=== PATIENT | female | born 1995 | race Hispanic/Latino ===

== ENCOUNTER 2021-10-19 18:04 | Emergency (ER) | payer SELFPAY ==
--- OUTSIDE RECORDS SUMMARY | 2021-10-19 18:05 | XMS REPORT | Continuity of Care Document ---
:1995 Author Organization [facility] t Address [facility] [place] [address] Care Team Providers Name Role Phone Unavailable Unavailable Unavailable Problems This patient has no known problems. Allergies, Adverse Reactions, Alerts This patient has no known allergies or adverse reactions. Medications This patient has no known medications. Procedures This patient has no known procedures. Results This patient has no known results.
--- NOTE | 2021-10-19 20:52 | EDPHYS ---
Physician Documentation [facility] Name: Akanksha Cortez Age: 26 yrs Sex: Female : 1995 Arrival Date: 10/19/2021 Time: 18:07 Bed Waiting Private MD: ED Physician Michael Leggett HPI: 10/19 20:50 This 26 yrs old Female presents to ER via Ambulatory with complaints of Cough, kb Sore Throat, Shortness Of Breath. 20:50 The patient or guardian reports cough, that is intermittent, described as mild, kb difficulty breathing, flu symptoms, low-grade fever, myalgias. Onset: The symptoms/episode began/occurred 3 day(s) ago. Severity of symptoms: At their worst the symptoms were mild, moderate, in the emergency department the symptoms are unchanged. Modifying factors: The symptoms are alleviated by nothing, the symptoms are aggravated by nothing. Associated signs and symptoms: Pertinent positives: fever, sore throat, Pertinent negatives: chest pain, diarrhea, ear ache, nausea, rhinorrhea, vomiting. The patient has not experienced similar symptoms in the past. The patient has not recently seen a physician. Pt reports fever, sore throat and shortness of breath for 3 days. 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 - Social history:: Smoking status: unknown. ROS: 20:50 Abdomen/GI: Negative for abdominal pain, nausea, vomiting, diarrhea, and constipation. kb 20:50 Constitutional: Positive for fever. 20:50 ENT: Positive for sore throat. 20:50 Respiratory: Positive for cough, shortness of breath. 20:50 All other systems are negative. Exam: 20:50 Constitutional: This is a well developed, well nourished patient who is awake, alert, kb and in no acute distress. Head/Face: Normocephalic, atraumatic. ENT: Moist Mucous membranes Cardiovascular: Regular rate and rhythm with a normal S1 and S2. No gallops, murmurs, or rubs. No pulse deficits. Respiratory: Respirations even and unlabored. No increased work of breathing. Talking in full sentences Skin: Warm, dry with normal turgor. Normal color. MS/ Extremity: Pulses equal, no cyanosis. Neurovascular intact. Full, normal range of motion. Neuro: Awake and alert, GCS 15, oriented to person, place, time, and situation. Moves all extremities. Normal gait. Psych: Awake, alert, with orientation to person, place and time. Behavior, mood, and affect are within normal limits. Vital Signs: 19:26 BP 137 / 73; Pulse 107; Temp 98.6; Pulse Ox 99% on R/A; sm5 21:00 BP 131 / 70; Pulse 97; Resp 19; Pulse Ox 100% on R/A; sm5 MDM: 19:33 Patient medically screened. kb 20:44 Data reviewed: vital signs, nurses notes. Data interpreted: Pulse oximetry: on room air kb is 99 %. Interpretation: normal. Counseling: I had a detailed discussion with the patient and/or guardian regarding: the historical points, exam findings, and any diagnostic results supporting the discharge/admit diagnosis, lab results, the need for outpatient follow up, a family practitioner, to return to the emergency department if symptoms worsen or persist or if there are any questions or concerns that arise at home. 10/19 19:33 Order name: Flu; Complete Time: 20:44 kb 10/19 19:33 Order name: Strep; Complete Time: 20:13 kb 10/19 19:33 Order name: COVID-19 (Coronavirus) Document "Date of Onset" if Symptomatic 10/19 20:03 Order name: Throat Culture EDMS Administered Medications: No medications were administered Disposition: 10/20 00:36 Co-signature as Attending Physician, Michael Leggett MD. pkl Disposition Summary: 10/19/21 20:52 Discharge Ordered Location: Home kb Condition: Stable kb Diagnosis - Acute upper respiratory infection, unspecified kb Followup: kb - With: Private Physician - When: 2 - 3 days - Reason: Recheck today's complaints, Continuance of care, Re-evaluation by your physician Followup: kb - With: Emergency Department - When: As needed - Reason: Worsening of condition Discharge Instructions: - Discharge Summary Sheet kb - Upper Respiratory Infection, Adult, [id number] kb - Viral Respiratory Infection, [id number] kb Forms: - Medication Reconciliation Form kb - Thank You Letter kb - Antibiotic Education kb - Prescription Opioid Use kb Signatures: Dispatcher [employer] EDBeata Ham, ELECTRONIC ENGINEERING DRAFTSPERSON-C ELECTRONIC ENGINEERING DRAFTSPERSON-Michael Woody MD MD pkl Mazur, Sarah, RN RN sm5
--- NOTE | 2021-10-19 20:52 | ER ---
Nurse's Notes [facility] Name: Akanksha Cortez Age: 26 yrs Sex: Female : 1995 Arrival Date: 10/19/2021 Time: 18:07 Bed Waiting Private MD: Diagnosis: Acute upper respiratory infection, unspecified Presentation: 10/19 19:26 Chief complaint: Patient states: fever, sore throat, difficulty breathing for 3 days. sm5 Coronavirus screen: difficulty breathing, fever, sore throat. Ebola Screen: No symptoms or risks identified at this time. Initial Sepsis Screen:. Onset of symptoms was September 2021. 19:26 Method Of Arrival: Ambulatory [facility] 19:37 Initial Sepsis Screen: Does the patient meet any 2 criteria? HR > 90 bpm. Does the 5 patient have a suspected source of infection? No. Patient's initial sepsis screen is negative. 19:37 Acuity: KALYAN 3 sm5 21:01 Risk Assessment: Do you want to hurt yourself or someone else? Patient reports no sm5 desire to harm self or others. Triage Assessment: 19:37 General: Appears in no apparent distress. Behavior is cooperative. Pain: Complains of sm5 pain in throat. EENT: Reports sore throat. Respiratory: Airway is patent Trachea midline Respiratory effort is even, unlabored. 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 - Social history:: Smoking status: unknown. Screenin:01 Abuse screen: Denies threats or abuse. Denies injuries from another. Nutritional sm5 screening: No deficits noted. Tuberculosis screening: No symptoms or risk factors identified. Fall Risk None identified. Assessment: 21:00 Reassessment: see triage assessment. Respiratory: No deficits noted. Reports shortness sm5 of breath cough that is Airway is patent Trachea midline Respiratory effort is even, unlabored, Breath sounds are clear bilaterally. 21:01 EENT: Throat is clear. sm5 Vital Signs: 19:26 BP 137 / 73; Pulse 107; Temp 98.6; Pulse Ox 99% on R/A; sm5 21:00 BP 131 / 70; Pulse 97; Resp 19; Pulse Ox 100% on R/A; sm5 ED Course: 18:07 Patient arrived in ED. as 19:33 Beata Gregory FNP-C is [facility]. kb 19:33 Michael Leggett MD is Attending Physician. kb 19:37 Triage completed. sm5 19:47 Flu Sent. sm5 19:47 Strep Sent. sm5 19:47 COVID-19 (Coronavirus) Document "Date of Onset" if Symptomatic Sent. sm5 21:01 No provider procedures requiring assistance completed. Patient did not have IV access sm5 during this emergency room visit. 21:01 Arm band placed on right wrist. sm5 21:01 Patient has correct armband on for positive identification. sm5 Administered Medications: No medications were administered Outcome: 20:52 Discharge ordered by . kb 21:02 Discharged to home ambulatory. sm5 21:02 Condition: good 21:02 Discharge instructions given to patient, Instructed on discharge instructions, follow up and referral plans. Demonstrated understanding of instructions, follow-up care. 21:02 Patient left the ED. sm5 Signatures: Beata Gregory FNP-C FNP-Ckb Martinez, Amelia as Mazur, Sarah, RN RN sm5 Corrections: (The following items were deleted from the chart) 19:29 19:26 Pulse 107bpm; Pulse Ox 99% RA; Temp 98.6F; sm5 sm5
[2021-10-19 21:17] VITALS: TEMP 98.6
[2021-10-19 21:19] VITALS: BP 131/70; O2SAT 100
== END 2021-10-19 21:02 | disposition home or self-care (01) ==
LOC: ER 18:04
DX: U07.1 COVID-19 (principal); J98.8 Other specified respiratory disorders
CPT/HCPCS: 87070; 87081; 87804; 99283; U0002

== ENCOUNTER 2023-05-21 17:42 | Emergency (ER) | payer SELFPAY ==
--- OUTSIDE RECORDS SUMMARY | 2023-05-21 17:52 | XMS REPORT | Continuity of Care Document ---
:1995 Author Organization [facility] t Address [address] [facility] [place] [address] Care Team Providers Name Role Phone PCP, PATIENT DOES NOT HAVE A Primary Care Physician UnavailVALENCIA Colon Attending Clinician Unavailable Doctor Unassigned, [place] Attending Clinician Unavailable NIKITA CHO Attending Clinician Unavailable ANDREA DAIGLE Attending Clinician Unavailable Nani Jiang DO Attending Clinician Andrea Daigle MD Attending Clinician [phone] NANI JIANG Admitting Clinician Unavailable Payers Payer Name Policy Type Policy Number Effective Date Expiration Date S carmita MEDICAID ALIEN PENDING 2022 PENDING 00:00:00 Problems Condition Condition Condition Status Onset Resolution Last Treating Co mments Source Name Details Category Date Date Treatment Clinician Date Well woman Well woman Disease Active U nivers exam exam 6-04 ity of 00:00: [address] H/O H/O Disease Active Univers allergy to allergy to 4-23 [place] [address] [place] [address] Obesity Obesity Disease Active Univers (BMI (BMI 4-20 ity of 30-39.9) 30-39.9) 00:00: [address] Allergies, Adverse Reactions, Alerts Allergy Allergy Status Severity Reaction(s) Onset Inactive Treating Comm ents Source Name Type Date Date Clinician Penicill Propensi Active 2016-10 ins ty to 1-15 adverse 00:00: reaction 00 to drug PENICILL DRUG Active Hives Univers IN G INGREDI 3-15 ity of 00:00: [place] 00 [facility] Penicill Propensi Active Hives Univer s in G ty to 3-15 ity of adverse 00:00: [place] reaction 00 [facility] Social History Social Habit Start Date Stop Date Quantity Comments Source Gender identity [facility]it y [facility] [place] Sexual orientation Univer sity of [facility] [place] Exposure to 2022-07-13 2022-07-23 Not sure [facility] SARS-CoV-2 (event) 00:00:00 03:54:00 [facility] [place] Alcohol intake 2022-07-23 2022-07-23 0 /d University 00:00:00 00:00:00 [facility] [place] History of Social 2019-05-01 2019-05-01 Univers ity of function 00:00:00 00:00:00 [facility] [place] Tobacco use and 2018-01-08 2018-01-08 Smokeless Universit y of exposure 00:00:00 00:00:00 tobacco non-user [facility] Sex Assigned At [birth year] Universit y of 00:00:00 00:00:00 [facility] [place] Smoking Status Start Date Stop Date Source Never smoked tobacco [facility] Medications Ordered Filled Start Stop Current Ordering Indication Dosage Frequency Signature Comments Components Source Medication Medication Date Date Medication? Clinician (SIG) Name Name TAKE 2021-10 No TABLET BY 1-30 MOUTH EVERY 00:00: 8 HOURS 00 NEEDED FOR NAUSEA AND VOMITING . iopamidol 2021-10- No [id number] 75mL 75 mL, U nivers (ISOVUE 07-23 Intravenou ity o f 370-500 mL) 12:00: 11:03 s, ONCE, 1 [place] injection 00 :00 dose, On Medica l 75 mL [place] 07/23/22 at 0700, Routine pantoprazol 2021-10- No 80mg 80 mg, IV Univers e 07-23 Push, ity of (PROTONIX) 10:15: 10:17 ONCE, 1 True as 80 mg in 00 :00 dose, On Medical NaCl 0.9% [place] (NS) 20 mL 07/23/22 at syringe 0515, Administer over 2 Minutes, 20 mL ondansetron 2021-10- No 4mg 4 mg, Slow Univers (ZOFRAN 0-02 10-02 IV Push, ity of (PF)) 10:15: 09:16 ONCE, 1 [place] injection 4 00 :00 dose, On Medi darcy mg [place] 07/23/22 at 0515, Routine maalox:diph 2021-10- No 15mL 15 mL, Uni vers enhydrAMINE 0-02 10-02 Oral, ity of :lidocaine 10:00: 09:15 ONCE, 1 True as 2 % viscous 00 :00 dose, On Medi darcy 1:1:1 [place] (FIRST-MOUT 07/23/22 at [facility]) 0500, oral Routine suspension 15 mL morpHINE (4 2021-10 Yes 4mg 4 mg, Slow Univers mg/mL) 0-02 IV Push, ity of injection 4 09:03: Q4HPRN, True as mg 00 Starting Medical on [place] 07/23/22 at 0403, Until Discontinu ed, Routine, Pain (scale 7-10) ondansetron 2021-10 Yes [id number] 4mg Take 1 Univers (ZOFRAN) 4 0-02 tablet by ity of mg tablet 00:00: mouth [place] 00 every 8 Medical (eight) Branch hours as needed for Nausea and Vomiting (N/V). ondansetron 2021-10 Yes [id number] 4mg Take 1 Univers (ZOFRAN) 4 0-02 tablet by ity of mg tablet 00:00: mouth [place] 00 every 8 Medical (eight) Branch hours as needed for Nausea and Vomiting (N/V). acetaminoph 2021-10- No [id number] 1{tbl} Take 1 U nivers en-codeine 0-02 10-10 tablet by ity of (TYLENOL-CO 00:00: 04:59 [place] DEINE #3) 00 :00 every 6 Medical 300-30 mg (six) Branch tablet hours as needed for Pain (scale 4-6) for up to 7 days. Indication s: acute pain Dose 2019-10 No Unknown 2-03 00:00: 00 Dose 2019- No Unknown 6-11 00:00: 00 sulfamethox 2018-0 No 1mg azole 800 6-12 mg-trimetho 00:00: prim 160 mg 00 tablet phenazopyri No 1mg dine 200 mg 6-12 tablet 00:00: 00 cyclobenzap No 1mg rine 5 mg 5-16 tablet 00:00: 00 Bactrim DS No 1mg 800 mg-160 3-22 mg tablet 00:00: 00 norethindro Yes [id number] 1{tbl} Take 1 Univers ne 0.35 mg 6-04 tablet by ity of tablet 00:00: mouth [place] 00 daily. Medical Branch norethindro Yes [id number] 1{tbl} Take 1 Univers ne 0.35 mg 6-04 tablet by ity of tablet 00:00: mouth [place] 00 daily. Medical Branch norethindro Yes [id number] 1{tbl} Take 1 Univers ne 0.35 mg 6-04 tablet by ity of tablet 00:00: mouth [place] 00 daily. Medical Branch ASCORBATE Yes Take by Unive rs CALCIUM 4-25 mouth. ity of (VITAMIN C 13:58: [place] ORAL) 52 Medical Branch ASCORBATE Yes Take by Unive rs CALCIUM 4-25 mouth. ity of (VITAMIN C 13:58: [place] ORAL) 52 Medical Branch ASCORBATE Yes Take by Unive rs CALCIUM 4-25 mouth. ity of (VITAMIN C 13:58: [place] ORAL) 52 Medical Branch HYDROcodone Yes 1{tbl} Take 1-2 Univers -acetaminop 4-25 tablets by it y of hen 5-325 00:00: mouth [place] mg tablet 00 every 6 Medical (six) Branch hours as needed for Pain (scale 4-6) (Pain scale above 4). Yes 1{tbl} Take 1 Unive rs vitamin 4-25 tablet by ity of w/FA tablet 00:00: mouth [place] 00 daily. Medical Branch docusate Yes 240mg Take 1 Univer s calcium 240 4-25 capsule by it y of mg capsule 00:00: mouth [place] 00 daily as Medical needed for Branch Constipati on. ferrous Yes 325mg Take 1 Univers sulfate 325 4-25 tablet by ity of mg (65 mg 00:00: mouth 2 [place] iron) 00 (two) Medical tablet times Branch daily. ibuprofen 2018-0 Yes 600mg Take 1 Unive rs 600 mg 4-25 tablet by ity of tablet 00:00: mouth [place] 00 every 6 Medical (six) Branch hours as needed for Pain (scale 1-3) or Pain (scale 4-6) (Pain). Take with food or milk. HYDROcodone 2018-0 Yes 1{tbl} Take 1-2 Univers -acetaminop 4-25 tablets by it y of hen 5-325 00:00: mouth [place] mg tablet 00 every 6 Medical (six) Branch hours as needed for Pain (scale 4-6) (Pain scale above 4). 2018-0 Yes 1{tbl} Take 1 Unive rs vitamin 4-25 tablet by ity of w/FA tablet 00:00: mouth [place] 00 daily. Medical Branch docusate 2018-0 Yes 240mg Take 1 Univer s calcium 240 4-25 capsule by it y of mg capsule 00:00: mouth [place] 00 daily as Medical needed for Branch Constipati on. ferrous 2018-0 Yes 325mg Take 1 Univers sulfate 325 4-25 tablet by ity of mg (65 mg 00:00: mouth 2 [place] iron) 00 (two) Medical tablet times Branch daily. ibuprofen 2018-0 Yes 600mg Take 1 Unive rs 600 mg 4-25 tablet by ity of tablet 00:00: mouth [place] 00 every 6 Medical (six) Branch hours as needed for Pain (scale 1-3) or Pain (scale 4-6) (Pain). Take with food or milk. HYDROcodone 2018-0 Yes 1{tbl} Take 1-2 Univers -acetaminop 4-25 tablets by it y of hen 5-325 00:00: mouth [place] mg tablet 00 every 6 Medical (six) Branch hours as needed for Pain (scale 4-6) (Pain scale above 4). 2018-0 Yes 1{tbl} Take 1 Unive rs vitamin 4-25 tablet by ity of w/FA tablet 00:00: mouth [place] 00 daily. Medical Branch docusate 2018-0 Yes 240mg Take 1 Univer s calcium 240 4-25 capsule by it y of mg capsule 00:00: mouth once [place] 00 daily as Medical needed for Branch Constipati on. ferrous 2018-0 Yes 325mg Take 1 Univers sulfate 325 4-25 tablet by ity of mg (65 mg 00:00: mouth 2 [place] iron) 00 (two) Medical tablet times Branch daily. ibuprofen 2018- Yes 600mg Take 1 Unive rs 600 mg 4-25 tablet by ity of tablet 00:00: mouth [place] 00 every 6 Medical (six) Branch hours as needed for Pain (scale 1-3) or Pain (scale 4-6) (Pain). Take with food or milk. Keflex 500 No 1mg mg capsule 11-21 00:00: 00 Immunizations Ordered Filled Immunization Date Status Comments [facility] e Immunization Name Name HPV9 2018-09-30 Completed University of 00:00:00 [facility] [place] HPV9 2018-09-30 Completed University of 00:00: [facility] [place] HPV9 2018-09-30 Completed University of 00:00:00 [facility] [place] HPV9 2018-03-25 Completed University of 00:00:00 [facility] [place] HPV9 2018-03-25 Completed University of 00:00:00 [facility] [place] HPV9 2018-03-25 Completed University of 00:00:00 [facility] [place] HPV9 2018-02-13 Completed University of 00:00:00 [facility] [place] HPV9 2018-02-13 Completed University of 00:00:00 [facility] [place] HPV9 2018-02-13 Completed University of 00:00:00 [facility] [place] PPD (TB) 2018-01-08 Completed University of 00:00:00 [facility] [place] PPD (TB) 2018-01-08 Completed University of 00:00:00 [facility] [place] PPD (TB) 2018-01-08 Completed University of 00:00:00 [facility] [place] Influenza Virus 2017-10-31 Completed Universit y of Vaccine 00:00:00 [facility] [place] Influenza Virus 2017-10-31 Completed Universit y of Vaccine 00:00:00 [facility] [place] Influenza Virus 2017-10-31 Completed Universit y of Vaccine 00:00:00 [facility] [place] TDAP (ADACEL) 2017-10-03 Completed University of VACCINE 00:00:00 [facility] [place] TDAP (ADACEL) 2017-10-03 Completed University of VACCINE 00:00:00 [facility] [place] TDAP (ADACEL) 2017-10-03 Completed University of VACCINE 00:00:00 [facility] [place] Influenza, 2017-09-05 Completed seasonal, inj 00:00:00 Tdap 2017-09-05 Completed 00:00:00 Influenza Virus 2017-01-03 Completed Universit y of Vaccine Quad ID 00:00:00 [place] [facility] 18-64 YRS Branch Influenza Virus 2017-01-03 Completed Universit y of Vaccine Quad ID 00:00:00 [place] [facility] ical 18-64 YRS Branch Influenza Virus 2017-01-03 Completed Universit y of Vaccine Quad ID 00:00:00 [facility] ical 18-64 YRS Branch Vital Signs Vital Name Observation Time Observation Value Comments Source Systolic blood 2022-07-23 12:03:00 122 mm[Hg] Univer sity of pressure [facility] [place] Diastolic blood 2022-07-23 12:03:00 71 mm[Hg] Unive rsity of pressure [facility] [place] Heart rate 2022-07-23 12:03:00 57 /min [facility] Respiratory rate 2022-07-23 12:03:00 16 /min [facility] Oxygen saturation in 2022-07-23 12:00:00 99 /min [facility] Arterial blood by [facility] Pulse oximetry Branch Body temperature 2022-07-23 08:56:00 36.11 Alie [facility] height 2022-07-23 08:56:00 162.6 cm [facility] Body weight 2022-07-23 08:56:00 88.451 kg [facility] BMI 2022-07-23 08:56:00 33.47 kg/m2 [facility] Heart Rate 2022-09-22 13:37:00 75.00 /min Respiratory Rate 2022-09-22 13:37:00 18.00 /min BP Systolic 2022-09-22 13:37:00 105 mm[Hg] BP Diastolic 2022-09-22 13:37:00 70 mm[Hg] Weight Measured 2022-09-22 13:37:00 196.40 pounds Height Measured 2022-09-22 13:37:00 65.00 inches Body Temperature 2022-09-22 13:37:00 97.70 degrees BP Systolic 2020-09-23 15:44:00 99 mm[Hg] BP Diastolic 2020-09-23 15:44:00 62 mm[Hg] Weight Measured 2020-09-23 15:44:00 191.60 pounds Height Measured 2020-09-23 15:44:00 65.00 inches Body Temperature 2020-09-23 15:44:00 99.80 degrees Heart Rate 2020-09-23 15:44:00 76.00 /min Respiratory Rate 2020-09-23 15:44:00 18.00 /min BP Systolic 2020-05-28 14:46:00 120 mm[Hg] BP Diastolic 2020-05-28 14:46:00 70 mm[Hg] Weight Measured 2020-05-28 14:46:00 196.00 pounds Height Measured 2020-05-28 14:46:00 65.00 inches Body Temperature 2020-05-28 14:46:00 98.30 degrees Heart Rate 2020-05-28 14:46:00 73.00 /min Respiratory Rate 2020-05-28 14:46:00 16.00 /min BP Systolic 2020-04-01 09:26:00 115 mm[Hg] BP Diastolic 2020-04-01 09:26:00 69 mm[Hg] Weight Measured 2020-04-01 09:26:00 198.40 pounds Height Measured 2020-04-01 09:26:00 65.00 inches Body Temperature 2020-04-01 09:26:00 98.80 degrees Heart Rate 2020-04-01 09:26:00 79.00 /min Respiratory Rate 2020-04-01 09:26:00 16.00 /min BP Systolic 2020-04-01 09:21:00 115 mm[Hg] BP Diastolic 2020-04-01 09:21:00 69 mm[Hg] Weight Measured 2020-04-01 09:21:00 198.40 pounds Height Measured 2020-04-01 09:21:00 65.00 inches Body Temperature 2020-04-01 09:21:00 98.80 degrees Heart Rate 2020-04-01 09:21:00 79.00 /min Respiratory Rate 2020-04-01 09:21:00 16.00 /min BP Systolic 2020-04-01 09:09:00 115 mm[Hg] BP Diastolic 2020-04-01 09:09:00 69 mm[Hg] Weight Measured 2020-04-01 09:09:00 198.40 pounds Height Measured 2020-04-01 09:09:00 65.00 inches Body Temperature 2020-04-01 09:09:00 98.80 degrees Heart Rate 2020-04-01 09:09:00 79.00 /min Respiratory Rate 2020-04-01 09:09:00 16.00 /min BP Systolic 2020-04-01 09:07:00 115 mm[Hg] BP Diastolic 2020-04-01 09:07:00 69 mm[Hg] Weight Measured 2020-04-01 09:07:00 198.40 pounds Height Measured 2020-04-01 09:07:00 65.00 inches Body Temperature 2020-04-01 09:07:00 98.80 degrees Heart Rate 2020-04-01 09:07:00 79.00 /min Respiratory Rate 2020-04-01 09:07:00 16.00 /min BP Systolic 2020-03-31 10:29:00 106 mm[Hg] BP Diastolic 2020-03-31 10:29:00 68 mm[Hg] Weight Measured 2020-03-31 10:29:00 199.60 pounds Height Measured 2020-03-31 10:29:00 65.00 inches Body Temperature 2020-03-31 10:29:00 98.80 degrees Heart Rate 2020-03-31 10:29:00 67.00 /min Respiratory Rate 2020-03-31 10:29:00 18.00 /min BP Systolic 2019-09-22 09:52:00 113 mm[Hg] BP Diastolic 2019-09-22 09:52:00 75 mm[Hg] Weight Measured 2019-09-22 09:52:00 194.00 pounds Height Measured 2019-09-22 09:52:00 65.00 inches Body Temperature 2019-09-22 09:52:00 98.50 degrees Heart Rate 2019-09-22 09:52:00 68.00 /min Respiratory Rate 2019-09-22 09:52:00 BP Systolic 2019-09-17 14:48:00 130 mm[Hg] BP Diastolic 2019-09-17 14:48:00 74 mm[Hg] Weight Measured 2019-09-17 14:48:00 196.40 pounds Height Measured 2019-09-17 14:48:00 65.00 inches Body Temperature 2019-09-17 14:48:00 98.60 degrees Heart Rate 2019-09-17 14:48:00 83.00 /min Respiratory Rate 2019-09-17 14:48:00 18.00 /min Procedures Procedure Date / Time Performed Performing Clinician Sourc e REFERRAL- 2023-05-15 05:01:00 Doctor Unassigned, No Univer [facility] REQUEST/RESPONSE Name Medical [place] US ABDOMEN LIMITED 2022-07-23 12:22:00 Nani Jiang [facility] y [facility] CT ABDOMEN PELVIS W 2022-07-23 11:05:42 Nani Jiang [facility] CONTRAST [facility] POCT TEST 2022-07-23 10:35:00 Nani Jiang [facility] URINALYSIS 2022-07-23 10:25:00 Singer [facility] LIPASE 2022-07-23 09:17:00 Singer [facility] COMP. METABOLIC PANEL 2022-07-23 09:17:00 Nani Jiang [facility] ([id number]) [facility] CBC WITH DIFF 2022-07-23 09:17:00 Singer [facility] NOTICE OF PRIVACY 2022-07-23 08:50:10 Doctor Unassigned, No Univ [facility] [place] PRACTICES Name [facility] CONSENT/REFUSAL FOR 2022-07-23 08:49:40 [facility] Branch TREATMENT Plan of Care Planned Activity Planned Date Details Comments Source Goal Plan of Care Note [code = 66082-7] Goal Plan of Care Note [code = 05291-6] Goal Plan of Care Note [code = 20498-2] Goal Plan of Care Note [code = 81888-1] Goal Plan of Care Note [code = 79727-6] Goal Plan of Care Note [code = 06887-5] Goal Plan of Care Note [code = 49660-9] Goal Plan of Care Note [code = 80161-2] Goal Plan of Care Note [code = 76635-6] Goal Plan of Care Note [code = 06142-0] Goal Plan of Care Note [code = 35521-2] Goal Plan of Care Note [code = 74202-1] Goal Plan of Care Note [code = 04225-1] Goal Plan of Care Note [code = 41343-8] Goal Plan of Care Note [code = 71797-2] Goal Plan of Care Note [code = 63614-0] Goal Plan of Care Note [code = 72384-3] Goal Plan of Care Note [code = 32741-0] Goal Plan of Care Note [code = 69293-9] Goal Plan of Care Note [code = 39607-5] Goal Plan of Care Note [code = 61295-0] Goal Plan of Care Note [code = 40579-8] Goal Plan of Care Note [code = 82038-8] Goal Plan of Care Note [code = 38289-6] Goal Plan of Care Note [code = 27305-4] Goal Plan of Care Note [code = 39779-9] Goal Plan of Care Note [code = 56703-4] Goal Plan of Care Note [code = 65990-6] Goal Plan of Care Note [code = 43730-4] Goal Plan of Care Note [code = 52784-6] Goal Plan of Care Note [code = 34813-9] Goal Plan of Care Note [code = 13969-2] Goal Plan of Care Note [code = 60057-3] Encounters Start End Encounter Admission Attending Care Care Encounter Source Date/Time Date/Time Type Type Clinicians Facility Department ID 2023-05-15 2023-05-15 Outpatient SFA SFA [id number] 023 Nickolas 09:24:48 09:24:48 0725 [facility] 2023-05-15 2023-05-15 Orders Doctor BRAGG [id number] Univers 00:00:00 00:00:00 Only Unassigned, IVANA 350.1.13.10 ity of [place] [facility] 4.2.7.2.686 True as [id number] [facility] 009 Branch 2023-02-05 2023-02-05 Outpatient SFA SFA [id number] [place] 10:37:27 10:37:27 0417 [facility] 2023-01-29 2023-01-29 Outpatient SFA SFA [id number] Nickolas 09:29:15 09:29:15 0410 [facility] 2023-01-23 2023-01-23 Outpatient SFA SFA [id number] Nickolas 16:29:57 16:29:57 0404 [facility] 2023-01-22 2023-01-22 Outpatient SFA [facility] [id number] [id number] Nickolas 15:44:46 15:44:46 0403 [facility] 2023-01-17 2023-01-17 Outpatient SFA [facility] [id number] Nickolas 13:42:59 13:42:59 0329 [facility] [place] 2022-10-03 2022-10-03 Outpatient SFA [facility] [id number] Nickolas 14:30:05 14:30:05 1213 [facility] [place] 2022-09-22 2022-09-22 Outpatient SFA [facility] [id number] Nickolas 13:31:55 13:31:55 1202 F [place] 2022-09-22 2022-09-22 Outpatient [id number] 00:00:00 00:00:00 Visit [id number] 2022-07-31 2022-07-31 Outpatient Lb CHO [facility] [id number] Univers 13:45:00 13:45:[address] [facility] 2022-07-23 2022-07-23 Emergency X AUFDERHEIDE [facility] ERT [id number] Univers 04:03:00 08:19:00 , ANDREA swenson [facility] 2022-07-23 2022-07-23 Emergency Nani Jiang [facility] [id number]. [id number] Univers 04:03:00 08:19:00 Andrea Daigle 350.1 .13.10 ity of [place] 4.2.7.2.686 [facility] [id number] [facility] 084 Branch 2022-07-23 2022-07-23 Orders Doctor MAHSA [id number] Univers 00:00:00 00:00:00 Only Unassigned, IVANA 350.1.13.10 ity of [place] [facility] 4.2.7.2.686 [facility] [id number] [facility] 009 Branch Results Test Description Test Time Test Comments Results Result Comments Source VITAMIN D, 25 [place] 2023-05-16 06:31:11 Test Item Value Reference Range Interpretation Comme nts VITAMIN D, 25 [place] (test 10 NG/ML SEE BELOW L E FFECTIVE 10/30/2022, PLEASE NOTE code = 4958) NEW METHODOLOGY IS ELECTROCHEMILUM INESCENCE BINDING ASSAY. NOTE: 25-HYDROX YVITAMIN D ASSAY INCLUDES 25-HYDROXYVITAM IN D2 AND D3. INTERPRETIVE RA NGES PEDIATRIC (<17 YEARS) . . . . . . . . . . . NG/ML 20-100ADULT: IN SUFFICIENT . . . . . . . . . . . . . . N G/ML <20 SUBOPTIMAL . . . . . . . . . . . . . . . NG/ML 20-29 OPTIMAL . . . . . . . . . . . . . . . . . NG/ML 30-100 UNLESS OTHERWISE INDICATED, ALL TESTING PERFORMED AT [facility] [employer] [address] [place] [address] PRESIDENT + PUBLISHER: SABAS ALVAREZ M.D. [place] NUMBER [id number] [facility] [place]. [id number] TSH, THIRD [id number] 06:19:25 Test Item Value Reference Range Interpretation Comments TSH, THIRD GENERATION (test code 1.350 UIU/ML 0.400-4.100 = 2821) LIPID [id number] 04:55:46 Test Item Value Reference Range Interpretation Comments CHOLESTEROL (test 151 MG/DL <200 code = 2210) TRIGLYCERIDES (test 129 MG/DL <150 code = 2232) HDL CHOLESTEROL (test 29 MG/DL >39 L code = 2220) CALC LDL CHOL (test 99 MG/DL <100 NOTE: C ALCULATED LDL code = 2237) IS BASED ON ARIE-GONZALES METHOD WHICHINCLUDES ADJUSTABLE TRIGLYCERIDE:VL DL CHOLESTEROL RAT IO.THIS FACTOR VARIES B Y MEASURED TRIGLY CERIDE AND NON-HDLCHOL ESTEROL CONCENTRATIONS WITH INCREASED CALCU LATED LDL SEENIN HIGH ER TRIGLYCERIDE OR LOWER NON-HDL SPECIME NS. FOR MOREINFORMATION , SEE CLIENT ANNOUNCE MENT AT [email or web address] RATIO LDL/HDL 3.41 RATIO <3.22 H (test code = 2238) COMPREHENSIVE METABOLIC [id number] 04:55:46 Test Item Value Reference Range Interpretation Comments GLUCOSE (test code = 93 MG/DL 70-99 2216) BUN (test code = 12 MG/DL 6-20 2207) CREATININE (test 0.69 MG/DL 0.60-1.30 code = 2213) eGFR (2020 CKD-EPI) 120 >60 (test code = 24920) ML/MIN/1.73 CALC BUN/CREAT (test 17 RATIO 6-28 code = 2234) SODIUM (test code = 141 MEQ/L 462-880 4560) POTASSIUM (test code 4.4 MEQ/L 3.5-5.4 = 2227) CHLORIDE (test code 106 MEQ/L 95-107 = 2214) CARBON DIOXIDE (test 26 MEQ/L 19-31 code = 2205) CALCIUM (test code = 9.4 MG/DL 8.5-10.5 2208) PROTEIN, TOTAL (test 7.6 G/DL 6.1-8.3 code = 2228) ALBUMIN (test code = 4.5 G/DL 3.5-5.2 2200) CALC GLOBULIN (test 3.1 G/DL 1.9-3.7 code = 2239) CALC A/G RATIO (test 1.5 RATIO 1.0-2.6 code = 2233) BILIRUBIN, TOTAL 0.4 MG/DL See_Comment [Automated message] (test code = 2206) The syste m which generated this result transmit rachel reference range : <=1.2. The refe rence range was not u sed to interpret th is result as normal/abnormal . ALKALINE PHOSPHATASE 103 U/L 40-112 (test code = 2203) AST (test code = 21 U/L 9-40 2217) ALT (test code = 22 U/L 5-40 2218) HEMOGLOBIN [id number] 04:04:58 Test Item Value Reference Range Interpretation Comments HEMOGLOBIN A1c (test 5.7 % 4.2-5.6 H AMERIC AN DIABETES code = 33881) ASSOCIATION IDELINES FOR HGB A1C: PREDIABETES/INC REASED RISK . . . . . . . 5.7 -6.4% DIAGNOSIS OF DI ABETES . . . . . . . . . >=6 .5% WITH CONFIRMATION OR APPROPRIATE SYMPTOMS NOTE: ASSAY MAY BE AFFECTED BY HEMOGLOBINOPATH IES (SICKLE CELL ANEMIA, S- C DISEASE, OTHERS) OR DIMPLE FICIALLY LOWERED BY DECR EASED RED CELL SURVIVAL ( HEMOLYTIC ANEMIAS, BLOOD LOSS, ETC.). CONSIDER ALTERN ATE TESTING OR LABORATORY C ONSULTATION. CBC W/AUTO DIFF WITH [id number] 03:42:12 Test Item Value Reference Range Interpretation Comments WBC (test code = 6.8 K/UL 3.5-11.0 1001) RBC (test code = 4.83 M/UL 3.80-5.40 1002) HEMOGLOBIN (test code 13.8 G/DL 11.5-15.5 = 1003) HEMATOCRIT (test code 40.9 % 34.0-45.0 = 1004) MCV (test code = 84.7 fL 80.0-99.0 1005) MCH (test code = 28.6 PG 25.0-33.0 1006) MCHC (test code = 33.7 G/DL 31.0-36.0 1007) RDW (test code = 13.2 % 11.5-15.0 1038) NEUTROPHILS (test 57.0 % code = 1008) LYMPHOCYTES (test 34.9 % code = 1010) MONOCYTES (test code 6.9 % = 1011) EOSINOPHILS (test 0.7 % code = 1012) BASOPHILS (test code 0.4 % = 1013) IMMATURE GRANULOCYTES 0.1 % (test code = 1036) NUCLEATED RBCS (test 0.0 /100 WBC'S See_Comment [Aut omated code = 1065) message] The sy stem which generated this result transmitted reference range : 0.0. The refere nce range was not u sed to interpret th is result as normal/abnormal . PLATELET COUNT (test 288 K/UL 130-400 code = 1015) ABSOLUTE NEUTROPHILS 3.86 K/UL 1.50-7.50 (test code = 1066) ABSOLUTE LYMPHOCYTES 2.37 K/UL 1.00-4.00 (test code = 1067) ABSOLUTE MONOCYTES 0.47 K/UL 0.20-1.00 (test code = 1068) ABSOLUTE EOSINOPHILS 0.05 K/UL 0.00-0.50 (test code = 1040) ABSOLUTE BASOPHILS 0.03 K/UL 0.00-0.20 (test code = 1069) ABS IMMATURE 0.01 K/UL 0.00-0.10 GRANULOCYTES (test code = 1020) ABS NUCLEATED RBCS 0.00 K/UL 0.00-0.11 (test code = 35023) PAP TEST, THINPREP, [id number] 16:47:29 Test Item Value Reference Range Interpretation Comments SOURCE: (test Cervical code = 8001) SLIDES: (test 1 code = 8011) LMP: (test code NOT GIVEN = 8021) SPECIMEN (NOTE) Satisfactory f or ADEQUACY: (test evaluation. code = 29207) Endocervical cells/transform ation zone component present. INTERPRETATION: NILM/NO EPITH. (test code = ABNORMALITY;SEE 82997) BELOW -------- - NEGATIVE FOR INTRAEPITHELIAL LESION OR MALIGNANCY ( NILM) -------- -------- -------- ---- OTHER COMMENTS: (NOTE) Background m aterial (test code = consistent with 8081) lubricant is pr esent, whichinterferes with specimen proces karin. AUTO PARTS CLERK Karlee M : (test code = [place] 8101) (ASCP) LOCATION: (test (NOTE) Specimens pr ocessed and code = 74654) [facility] [address], [place] [address], Phone: , CLIA: [id number] CPT: (test code (NOTE) 84701 UNLESS OTHERWISE = 8140) INDICATED, COMP UTER AIDED AND CYTOTECHNOLOGIS T SCREENING PERFO RMED. The Pap test is a screening test with an inherent, but l ow probability of error. Your patient sh ould be reminded to con sult you immediately if she experiences any suspicious sign s or symptoms, regar dless of her Pap test re sult. An alternate repor t format containing imag es or consolidated pr ior Pap history is avash lindo as applicable. HPV HIGH RISK WITH GENOTYPE, [id number] 15:35:13 Test Item Value Reference Range Interpretation Comments HPV HIGH RISK INTERP NEGATIVE NEGATIVE (test code = 15639) HPV 16 (test code = NEGATIVE 29461) HPV 18 (test code = NEGATIVE 26855) HPV, HR, OTHER NEGATIVE Testing meth odology is GENOTYPES (test code real-ti me PCR utilizing = 40425) hydrolysis prob es with the [employer]00 system. The radha t individually de tects genotypes 16 an d 18, as well as the oth er 12 high risk types (31,33,35,39,45 ,51,52,56 ,58,59,66,68). The expected result is negative. A neg ative result does not rule out the presence of HPV not included in the genotype set, a low leve l of infection or sp ecimen sampling error. [facility] has important p athology staff changes e ffective 12/20/2022. New pathology staff will provide uninter rupted, excellent patie nt care and clinical consultation. S ee URL: [email or web address]. UNLESS OTHERWISE INDICATED, ALL TESTING PERFORMED AT [facility] [address] [place] [address] 4 LABORATORY DIRE CTOR: EULALIA RANKIN M.D. [place] NUMBER [id number] [place] [id number] CULTURE, [id number] 13:08:36SPECIMEN NUMBER: [id number] CULTURE, URINE SPECIMEN NUMBER: [id number] SPECIMEN COMMENT: URINE SOURCE:URINE REPORT STATUS: FINAL ISOLATE NUMBER 1: ORGANISM: 01/20/2023 >100,000 CFU/ML GRAM NEGATIVE BA CILLI IDENTIFICATION: KLEBSIELLA PNEUMONIAE K. PNEUMONIAE AMOXICILLIN/CA SENSITIVE <=8/4AMPICILLIN RESISTANT >16CEFAZOLIN SENSITIVE <=2CEFTRIAXONE SENSITIVE <=1CIPROFLOXACIN SENSITIVE <=1LEVOFLOXACIN SENSITIVE <=2NITROFURANTOIN SENSITIVE <=32PIP/TAZOBAC SENSITIVE <=16TETRACYCLINE SENSITIVE <=4TOBRAMYCIN SENSITIVE <=4TRIMETH/SULFA SENSITIVE <=2/38 NOTE: NUMBERS DISPLAYED REPRESENT MINIMUM INHIBITORY CONCENTRATION (WESLEY) WHICH IS EXPRESSED IN MCG/ML. [facility] has important pathology staff changes effective 12/20/2022. New pathology staff will provide uninterrupted, excellent patient care and clinical consultation. See URL: [email or web address]. UNLESS OTHERWISE INDICATED, ALL TESTING PERFORMED AT [facility] [address] [place] [address] PRESIDENT + PUBLISHER: EULALIA ALVAREZ M.D. CLIA NUMBER [id number] [facility] [place]. [id number] 10:35:00 Test Item Value Reference Range Interpretation Comments POCT PREG (test code = 1605) negative On board controls acceptable with present C Line (test code = 3574) POCT PREG LOT # (test code = 3575) [id number] POCT PREG TEST DATE (test 2023-10-21 code = 3576) Lab Interpretation (test code = Normal 65790-8) [facility] WITH [id number] 09:48:02 Test Item Value Reference Range Interpretation Comments WBC (test code = See_Comment [Automated 9944-2) message] The sy stem which generated this result transmitted reference range : 4.30 - 11.10 10*3/?L. The reference range was not used to interpret this result as normal/abnormal . RBC (test code = See_Comment [Automated 686-8) message] The sy stem which generated this result transmitted reference range : 3.93 - 5.25 10*6/?L. The reference range was not used to interpret this result as normal/abnormal . HGB (test code = 11.1 g/dL 11.6-15 L 718-7) HCT (test code = 36.1 % 35.7-45.2 4544-3) MCV (test code = 82.2 fL 80.6-95.5 787-2) MCH (test code = 25.3 pg 25.9-32.8 L 785-6) MCHC (test code = 30.7 g/dL 31.6-35.1 L 786-4) RDW-SD (test code = 42.7 fL 39-49.9 79606-4) RDW-CV (test code = 14.5 % 12-15.5 788-0) PLT (test code = See_Comment [Automated 777-3) message] The sy stem which generated this result transmitted reference range : 166 - 358 10*3/ ?L. The reference r rochelle was not used to interpret this result as normal/abnormal . MPV (test code = 10.2 fL 9.5-12.9 08410-8) NRBC/100 WBC (test See_Comment [Automat ed code = [id number]) message] The system which generated this result transmitted reference range : 0.0 - 10.0 /100 WBCs. The refer ence range was not u sed to interpret th is result as normal/abnormal . NRBC x10^3 (test code See_Comment [Auto mated = [id number]) message] The s ystem which generated this result transmitted reference range : 10*3/?L. The reference range was not used to interpret this result as normal/abnormal . GRAN MAT (NEUT) % 63.7 % (test code = 770-8) IMM GRAN % (test code 0.20 % = 1109485308) LYMPH % (test code = 26.0 % 736-9) MONO % (test code = 9.5 % 5905-5) EOS % (test code = 0.3 % 713-8) BASO % (test code = 0.3 % 706-2) GRAN MAT x10^3(ANC) 5.60 10*3/uL 1.88-7.09 (test code = 6377055851) IMM GRAN x10^3 (test 0-0.06 code = 0966163985) LYMPH x10^3 (test code 2.29 10*3/uL 1.32-3.29 = 731-0) MONO x10^3 (test code 0.84 10*3/uL 0.33-0.92 = 742-7) EOS x10^3 (test code = 0.03 10*3/uL 0.03-0.39 711-2) BASO x10^3 (test code 0.03 10*3/uL 0.01-0.07 = 704-7) Lab Interpretation Abnormal (test code = 76071-4) [facility]. METABOLIC PANEL (59547)2022-07-23 09:46:21 Test Item Value Reference Range Interpretation Comments NA (test code = 142 mmol/L 135-145 6021283753) K (test code = 4.4 mmol/L 3.5-5 5101682300) CL (test code = 107 mmol/L 98-108 1179375331) CO2 TOTAL (test code = 29 mmol/L 23-31 1631836197) AGAP (test code = 2-16 0289819310) BUN (test code = 11 mg/dL 7-23 2166580184) GLUCOSE (test code = 114 mg/dL 70-110 H 6525690344) CREATININE (test code = 0.73 mg/dL 0.5-1.04 5354236475) TOTAL BILI (test code = 0.2 mg/dL 0.1-1.2 1908382362) CALCIUM (test code = 9.1 mg/dL 8.6-10.6 2595985336) T PROTEIN (test code = 7.4 g/dL 6.3-8.2 8114868546) ALBUMIN (test code = 4.6 g/dL 3.5-5 4467987169) ALK PHOS (test code = 108 U/L 34-122 9879513288) ALTv (test code = 25 U/L 5-35 1742-6) AST(SGOT) (test code = 24 U/L 13-40 6288215916) eGFR (test code = mL/min/1.73m2 9290968317) GIANFRANCO (test code = GIANFRANCO) Association of Glomerular Filtration Rate (GFR) and Staging of Kidney Disease* + --+ --+ ------+| GFR (mL/min/1.73 m2) ?| With Kidney Damage ?| ?Without Kidney Damage+ --------+ --------+ +| ?>90 ?| ?Stage one ?| ? Normal ?+ ---+ ---+ -------+| ?60-89 ?| ?Stage two ?| ? Decreased GFR ? + --+ --+ ------+| ?30-59 ?| ?Stage three ?| ? Stage three ? + --+ --+ ------+| ?15-29 ?| ?Stage four ? | ? Stage four ?+ ---+ ---+ -------+| ?<15 (or dialysis) ? ?| ?Stage five ? | ? Stage five ?+ ---+ ---+ -------+ *Each stage assumes the associated GFR level has been in effect for at least three months. ?Stages 1 to 5, with or without kidney disease, indicate chronic kidney disease. Notes: Determination of stages one and two (with eGFR >59mL/min/1.73 m2) requires estimation of kidney damage for at least three months as defined by structural or functional abnormalities of the kidney, manifested by either:Pathological abnormalities or Markers of kidney damage (including abnormalities in the composition of the blood or urine or abnormalities in imaging tests). Lab Interpretation Abnormal (test code = 64473-4) [facility] Test Item Value Reference Range Interpretation Comments LIPASE (test code = 3659360071) 45 U/L 0-220 Lab Interpretation (test code = Normal 87621-2) [facility] Test Item Value Reference Range Interpretation Comments TSH, THIRD GENERATION (test code 2.270 UIU/ML = 2821) [id number] 00:00:00 Test Item Value Reference Range Interpretation Comments TSH, THIRD GENERATION (test code 2.270 UIU/ML = 2821) [id number] 00:00:00 Test Item Value Reference Range Interpretation Comments TSH, THIRD GENERATION (test code 2.270 UIU/ML = 2821) FSH + LH [id number] 00:00:00 Test Item Value Reference Range Interpretation Comments FOLLICLE STIM HORMONE (test code = 4.8 IU/L 2700) LUTEINIZING HORMONE (test code = 13.3 IU/L 2776) FSH + LH [id number] 00:00:00 Test Item Value Reference Range Interpretation Comments FOLLICLE STIM HORMONE (test code = 4.8 IU/L 2700) LUTEINIZING HORMONE (test code = 13.3 IU/L 2776) [id number] 00:00:00 Test Item Value Reference Range Interpretation Comments PROLACTIN (test code = 2800) 11.1 NG/ML [id number] 00:00:00 Test Item Value Reference Range Interpretation Comments PROLACTIN (test code = 2800) 11.1 NG/ML HIV AB/AG COMBO RFLX [id number] 00:00:00 Test Item Value Reference Range Interpretation Comments HIV 1/2 4TH GEN, RFLX CONF (test NON-REACTIVE code = 3514) CBC W/AUTO [id number] 00:00:00 Test Item Value Reference Range Interpretation Comments WBC (test code = 1001) 6.0 K/UL RBC (test code = 1002) 4.72 M/UL HEMOGLOBIN (test code = 1003) 14.0 G/DL HEMATOCRIT (test code = 1004) 40.0 % MCV (test code = 1005) 84.7 fL MCH (test code = 1006) 29.7 PG MCHC (test code = 1007) 35.0 G/DL RDW (test code = 1038) 12.2 % NEUTROPHILS (test code = 1008) 57.1 % LYMPHOCYTES (test code = 1010) 34.7 % MONOCYTES (test code = 1011) 6.7 % EOSINOPHILS (test code = 1012) 0.8 % BASOPHILS (test code = 1013) 0.7 % PLATELET COUNT (test code = 1015) 282 K/UL HIV AB/AG COMBO RFLX [id number] 00:00:00 Test Item Value Reference Range Interpretation Comments HIV 1/2 4TH GEN, RFLX CONF (test NON-REACTIVE code = 3514) CBC W/AUTO [id number] 00:00:00 Test Item Value Reference Range Interpretation Comments WBC (test code = 1001) 6.0 K/UL RBC (test code = 1002) 4.72 M/UL HEMOGLOBIN (test code = 1003) 14.0 G/DL HEMATOCRIT (test code = 1004) 40.0 % MCV (test code = 1005) 84.7 fL MCH (test code = 1006) 29.7 PG MCHC (test code = 1007) 35.0 G/DL RDW (test code = 1038) 12.2 % NEUTROPHILS (test code = 1008) 57.1 % LYMPHOCYTES (test code = 1010) 34.7 % MONOCYTES (test code = 1011) 6.7 % EOSINOPHILS (test code = 1012) 0.8 % BASOPHILS (test code = 1013) 0.7 % PLATELET COUNT (test code = 1015) 282 K/UL CBC W/AUTO [id number] 00:00:00 Test Item Value Reference Range Interpretation Comments WBC (test code = 1001) 6.0 K/UL RBC (test code = 1002) 4.72 M/UL HEMOGLOBIN (test code = 1003) 14.0 G/DL HEMATOCRIT (test code = 1004) 40.0 % MCV (test code = 1005) 84.7 fL MCH (test code = 1006) 29.7 PG MCHC (test code = 1007) 35.0 G/DL RDW (test code = 1038) 12.2 % NEUTROPHILS (test code = 1008) 57.1 % LYMPHOCYTES (test code = 1010) 34.7 % MONOCYTES (test code = 1011) 6.7 % EOSINOPHILS (test code = 1012) 0.8 % BASOPHILS (test code = 1013) 0.7 % PLATELET COUNT (test code = 1015) 282 K/UL [id number] 00:00:00 Test Item Value Reference Range Interpretation Comments RPR RESULT (test code = NON-REACTIVE 3501) RPR TITER (test code = 3500) NOT INDIC. TITER [id number] 00:00:00 Test Item Value Reference Range Interpretation Comments RPR RESULT (test code = NON-REACTIVE 3501) RPR TITER (test code = 3500) NOT INDIC. TITER [id number] 00:00:00 Test Item Value Reference Range Interpretation Comments RPR RESULT (test code = NON-REACTIVE 3501) RPR TITER (test code = 3500) NOT INDIC. TITER LIPID [id number] 00:00:00 Test Item Value Reference Range Interpretation Comments CHOLESTEROL (test code = 2210) 162 MG/DL TRIGLYCERIDES (test code = 2232) 144 MG/DL HDL CHOLESTEROL (test code = 2220) 31 MG/DL CALC LDL CHOL (test code = 2237) 102 MG/DL RISK RATIO LDL/HDL (test code = 3.30 RATIO 2238) LIPID [id number] 00:00:00 Test Item Value Reference Range Interpretation Comments CHOLESTEROL (test code = 2210) 162 MG/DL TRIGLYCERIDES (test code = 2232) 144 MG/DL HDL CHOLESTEROL (test code = 2220) 31 MG/DL CALC LDL CHOL (test code = 2237) 102 MG/DL RISK RATIO LDL/HDL (test code = 3.30 RATIO 2238) HEMOGLOBIN [id number] 00:00:00 Test Item Value Reference Range Interpretation Comments HEMOGLOBIN A1c (test code = 21191) 5.4 % HEPATITIS PROFILE (A,B,C)2019-09-23 00:00:00 Test Item Value Reference Range Interpretation Comments HEPATITIS A TOTAL AB (test code REACTIVE = 2725) HEPATITIS B SURF AG (test code = NON-REACTIVE 2739) HEP B CORE TOTAL AB (test code = NON-REACTIVE 2729) HEPATITIS B SURFACE AB (test REACTIVE code = 2737) HEPATITIS C ANTIBODY (test code NON-REACTIVE = 4675) INTERPRETATION HEPATITIS A: (NOTE) (test code = 2552) INTERPRETATION HEPATITIS B: (NOTE) (test code = 25064) INTERPRETATION HEPATITIS C: (NOTE) (test code = 72532) HEPATITIS PROFILE (A,B,C)2019-09-23 00:00:00 Test Item Value Reference Range Interpretation Comments HEPATITIS A TOTAL AB (test code REACTIVE = 2725) HEPATITIS B SURF AG (test code = NON-REACTIVE 2739) HEP B CORE TOTAL AB (test code = NON-REACTIVE 2729) HEPATITIS B SURFACE AB (test REACTIVE code = 2737) HEPATITIS C ANTIBODY (test code NON-REACTIVE = 4675) INTERPRETATION HEPATITIS A: (NOTE) (test code = 2552) INTERPRETATION HEPATITIS B: (NOTE) (test code = 91265) INTERPRETATION HEPATITIS C: (NOTE) (test code = 17572) HEMOGLOBIN [id number] 00:00:00 Test Item Value Reference Range Interpretation Comments HEMOGLOBIN A1c (test code = 93244) 5.4 % HEMOGLOBIN [id number] 00:00:00 Test Item Value Reference Range Interpretation Comments HEMOGLOBIN A1c (test code = 50371) 5.4 % HEPATITIS A IgM [REFLEX]2019-09-23 00:00:00 Test Item Value Reference Range Interpretation Comments HEPATITIS A IgM (test code = NON-REACTIVE 8) COMPREHENSIVE METABOLIC [id number] 00:00:00 Test Item Value Reference Range Interpretation Comments GLUCOSE (test code = 2217) 100 MG/DL BUN (test code = 2208) 9 MG/DL CREATININE (test code = 2214) 0.67 MG/DL eGFR AMER. (test code 141 ML/MIN/1.73 = 65828) eGFR NON- AMER. (test 121 ML/MIN/1.73 code = 70105) CALC BUN/CREAT (test code = 13 RATIO 2235) SODIUM (test code = 2231) 140 MEQ/L POTASSIUM (test code = 2228) 4.2 MEQ/L CHLORIDE (test code = 2215) 102 MEQ/L CARBON DIOXIDE (test code = 27 MEQ/L 220) CALCIUM (test code = 2209) 9.7 MG/DL PROTEIN, TOTAL (test code = 8.0 G/DL 2228) ALBUMIN (test code = 2201) 4.4 G/DL CALC GLOBULIN (test code = 3.6 G/DL 2240) CALC A/G RATIO (test code = 1.2 RATIO 2234) BILIRUBIN, TOTAL (test code = 0.3 MG/DL 2206) ALKALINE PHOSPHATASE (test 111 U/L code = 2204) AST (test code = 2218) 22 U/L ALT (test code = 2219) 28 U/L COMPREHENSIVE METABOLIC [id number] 00:00:00 Test Item Value Reference Range Interpretation Comments GLUCOSE (test code = 2217) 100 MG/DL BUN (test code = 2208) 9 MG/DL CREATININE (test code = 2214) 0.67 MG/DL eGFR AMER. (test code 141 ML/MIN/1.73 = 46487) eGFR NON- AMER. (test 121 ML/MIN/1.73 code = 10158) CALC BUN/CREAT (test code = 13 RATIO 2235) SODIUM (test code = 2231) 140 MEQ/L POTASSIUM (test code = 2228) 4.2 MEQ/L CHLORIDE (test code = 2215) 102 MEQ/L CARBON DIOXIDE (test code = 27 MEQ/L 2206) CALCIUM (test code = 2209) 9.7 MG/DL PROTEIN, TOTAL (test code = 8.0 G/DL 2228) ALBUMIN (test code = 2201) 4.4 G/DL CALC GLOBULIN (test code = 3.6 G/DL 2240) CALC A/G RATIO (test code = 1.2 RATIO 2234) BILIRUBIN, TOTAL (test code = 0.3 MG/DL 2207) ALKALINE PHOSPHATASE (test 111 U/L code = 2204) AST (test code = 2218) 22 U/L ALT (test code = 2219) 28 U/L PAP TEST, THINPREP, [id number] 00:00:00 Test Item Value Reference Range Interpretation Comments SOURCE: (test code = Cervical/Vaginal 8001) SLIDES: (test code = 1 8011) LMP: (test code = 8021) 09/08/2019 SPECIMEN ADEQUACY: (NOTE) (test code = 73282) INTERPRETATION: (test NILM/NO EPITH. code = 28835) ABNORMALITY;SEE BELOW AUTO PARTS CLERK: (test Vincent code = 8101) SHAHRZAD Mccrary(ASCP) LOCATION: (test code = (NOTE) 63410) CPT: (test code = 8140) (NOTE) PAP TEST, THINPREP, [id number] 00:00:00 Test Item Value Reference Range Interpretation Comments SOURCE: (test code = Cervical/Vaginal 8001) SLIDES: (test code = 1 8011) LMP: (test code = 8021) 09/08/2019 SPECIMEN ADEQUACY: (NOTE) (test code = 17705) INTERPRETATION: (test NILM/NO EPITH. code = 93355) ABNORMALITY;SEE BELOW AUTO PARTS CLERK: (test Vincent code = 8101) SHAHRZAD Mccrary(ASCP) LOCATION: (test code = (NOTE) 84326) CPT: (test code = 8140) (NOTE) GC AND CHLAMYDIA AMPLIFIED, [id number] 00:00:00 Test Item Value Reference Range Interpretation Comments GONORRHEA, TMA (test code = 30666) NEGATIVE CHLAMYDIA, TMA (test code = 77168) NEGATIVE GC AND CHLAMYDIA AMPLIFIED, [id number] 00:00:00 Test Item Value Reference Range Interpretation Comments GONORRHEA, TMA (test code = 95255) NEGATIVE CHLAMYDIA, TMA (test code = 97533) NEGATIVE HPV HIGH RISK WITH GENOTYPE, [id number] 00:00:00 Test Item Value Reference Range Interpretation Comments HPV HIGH RISK INTERP (test code = NEGATIVE 06839) HPV 16 (test code = 68311) NEGATIVE HPV 18 (test code = 87680) NEGATIVE HPV, HR, OTHER GENOTYPES (test code NEGATIVE = 67156) HPV HIGH RISK WITH GENOTYPE, [id number] 00:00:00 Test Item Value Reference Range Interpretation Comments HPV HIGH RISK INTERP (test code = NEGATIVE 19545) HPV 16 (test code = 24880) NEGATIVE HPV 18 (test code = 70361) NEGATIVE HPV, HR, OTHER GENOTYPES (test code NEGATIVE = 93262) [id number] 00:00:00 Test Item Value Reference Range Interpretation Comments TSH, THIRD GENERATION (test code 3.020 UIU/ML = 2821) [id number] 00:00:00 Test Item Value Reference Range Interpretation Comments TSH, THIRD GENERATION (test code 3.020 UIU/ML = 2821) [id number] 00:00:00 Test Item Value Reference Range Interpretation Comments TSH, THIRD GENERATION (test code 3.020 UIU/ML = 2821) HCG, [id number] 00:00:00 Test Item Value Reference Range Interpretation Comments HCG, QUANTITATIVE (test code = <5 MIU/ML 2506) HCG, [id number] 00:00:00 Test Item Value Reference Range Interpretation Comments HCG, QUANTITATIVE (test code = <5 MIU/ML 2506) HCG, [id number] 00:00:00 Test Item Value Reference Range Interpretation Comments HCG, QUANTITATIVE (test code = <5 MIU/ML 2506) CULTURE, [id number] 00:00:00 Test Item Value Reference Range Interpretation Comments CULTURE, URINE (test SPECIMEN NUMBER: code = 38522) [id number] CULTURE, [id number] 00:00:00 Test Item Value Reference Range Interpretation Comments CULTURE, URINE (test SPECIMEN NUMBER: code = 44705) [id number] VAGINAL PATHOGENS DNA [id number] 00:00:00 Test Item Value Reference Range Interpretation Comments BRYAN SPECIES (test code = ) NEGATIVE G. VAGINALIS (test code = 17050) NEGATIVE T. VAGINALIS (test code = ) NEGATIVE VAGINAL PATHOGENS DNA [id number] 00:00:00 Test Item Value Reference Range Interpretation Comments BRYAN SPECIES (test code = ) NEGATIVE G. VAGINALIS (test code = 58994) NEGATIVE T. VAGINALIS (test code = 25662) NEGATIVE CULTURE, [id number] 00:00:00 Test Item Value Reference Range Interpretation Comments CULTURE, URINE (test SPECIMEN NUMBER: code = 46402) [id number] CULTURE, [id number] 00:00:00 Test Item Value Reference Range Interpretation Comments CULTURE, URINE (test SPECIMEN NUMBER: code = 28173) [id number] CBC W/AUTO [id number] 00:00:00 Test Item Value Reference Range Interpretation Comments WBC (test code = 1001) 8.4 K/UL RBC (test code = 1002) 3.54 M/UL HEMOGLOBIN (test code = 1003) 11.1 G/DL HEMATOCRIT (test code = 1004) 31.9 % MCV (test code = 1005) 90.1 fL MCH (test code = 1006) 31.4 PG MCHC (test code = 1007) 34.8 G/DL RDW (test code = 1038) 12.4 % NEUTROPHILS (test code = 1008) 71.9 % LYMPHOCYTES (test code = 1010) 19.0 % MONOCYTES (test code = 1011) 8.7 % EOSINOPHILS (test code = 1012) 0.2 % BASOPHILS (test code = 1013) 0.2 % PLATELET COUNT (test code = 1015) 293 K/UL CBC W/AUTO [id number] 00:00:00 Test Item Value Reference Range Interpretation Comments WBC (test code = 1001) 8.4 K/UL RBC (test code = 1002) 3.54 M/UL HEMOGLOBIN (test code = 1003) 11.1 G/DL HEMATOCRIT (test code = 1004) 31.9 % MCV (test code = 1005) 90.1 fL MCH (test code = 1006) 31.4 PG MCHC (test code = 1007) 34.8 G/DL RDW (test code = 1038) 12.4 % NEUTROPHILS (test code = 1008) 71.9 % LYMPHOCYTES (test code = 1010) 19.0 % MONOCYTES (test code = 1011) 8.7 % EOSINOPHILS (test code = 1012) 0.2 % BASOPHILS (test code = 1013) 0.2 % PLATELET COUNT (test code = 1015) 293 K/UL CBC W/AUTO [id number] 00:00:00 Test Item Value Reference Range Interpretation Comments WBC (test code = 1001) 8.4 K/UL RBC (test code = 1002) 3.54 M/UL HEMOGLOBIN (test code = 1003) 11.1 G/DL HEMATOCRIT (test code = 1004) 31.9 % MCV (test code = 1005) 90.1 fL MCH (test code = 1006) 31.4 PG MCHC (test code = 1007) 34.8 G/DL RDW (test code = 1038) 12.4 % NEUTROPHILS (test code = 1008) 71.9 % LYMPHOCYTES (test code = 1010) 19.0 % MONOCYTES (test code = 1011) 8.7 % EOSINOPHILS (test code = 1012) 0.2 % BASOPHILS (test code = 1013) 0.2 % PLATELET COUNT (test code = 1015) 293 K/UL DRUG ABUSE PANEL 10 WITH [id number] 00:00:00 Test Item Value Reference Range Interpretation Comments AMPHETAMINES (test code = 3201) NEGATIVE BARBITURATES (test code = 3202) NEGATIVE BENZODIAZEPINES (test code = 3203) NEGATIVE CANNABINOIDS (test code = 3204) NEGATIVE COCAINE METABOLITE (test code = NEGATIVE 3205) METHADONE (test code = 3207) NEGATIVE METHAQUALONE (test code = 3208) NEGATIVE OPIATES (test code = 3209) NEGATIVE PHENCYCLIDINE (test code = 3210) NEGATIVE PROPOXYPHENE (test code = 3211) NEGATIVE SPECIMEN, DRUG SCREEN (test code = URINE 3217) OXYCODONE, URINE (test code = 97757) NEGATIVE DRUG ABUSE PANEL 10 WITH [id number] 00:00:00 Test Item Value Reference Range Interpretation Comments AMPHETAMINES (test code = 3201) NEGATIVE BARBITURATES (test code = 3202) NEGATIVE BENZODIAZEPINES (test code = 3203) NEGATIVE CANNABINOIDS (test code = 3204) NEGATIVE COCAINE METABOLITE (test code = NEGATIVE 3205) METHADONE (test code = 3207) NEGATIVE METHAQUALONE (test code = 3208) NEGATIVE OPIATES (test code = 3209) NEGATIVE PHENCYCLIDINE (test code = 3210) NEGATIVE PROPOXYPHENE (test code = 3211) NEGATIVE SPECIMEN, DRUG SCREEN (test code = URINE 3217) OXYCODONE, URINE (test code = 44693) NEGATIVE CULTURE, [id number] 00:00:00 Test Item Value Reference Range Interpretation Comments CULTURE, URINE (test SPECIMEN NUMBER: code = 97062) [id number] CULTURE, [id number] 00:00:00 Test Item Value Reference Range Interpretation Comments CULTURE, URINE (test SPECIMEN NUMBER: code = 22848) [id number] DRUG ABUSE PANEL 10 WITH [id number] 00:00:00 Test Item Value Reference Range Interpretation Comments AMPHETAMINES (test code = 3201) NEGATIVE BARBITURATES (test code = 3202) NEGATIVE BENZODIAZEPINES (test code = 3203) NEGATIVE CANNABINOIDS (test code = 3204) NEGATIVE COCAINE METABOLITE (test code = NEGATIVE 3205) METHADONE (test code = 3207) NEGATIVE METHAQUALONE (test code = 3208) NEGATIVE OPIATES (test code = 3209) NEGATIVE PHENCYCLIDINE (test code = 3210) NEGATIVE PROPOXYPHENE (test code = 3211) NEGATIVE SPECIMEN, DRUG SCREEN (test code = URINE 3217) OXYCODONE, URINE (test code = 18260) NEGATIVE DRUG ABUSE PANEL 10 WITH [id number] 00:00:00 Test Item Value Reference Range Interpretation Comments AMPHETAMINES (test code = 3201) NEGATIVE BARBITURATES (test code = 3202) NEGATIVE BENZODIAZEPINES (test code = 3203) NEGATIVE CANNABINOIDS (test code = 3204) NEGATIVE COCAINE METABOLITE (test code = NEGATIVE 3205) METHADONE (test code = 3207) NEGATIVE METHAQUALONE (test code = 3208) NEGATIVE OPIATES (test code = 3209) NEGATIVE PHENCYCLIDINE (test code = 3210) NEGATIVE PROPOXYPHENE (test code = 3211) NEGATIVE SPECIMEN, DRUG SCREEN (test code = URINE 3217) OXYCODONE, URINE (test code = 08030) NEGATIVE CULTURE, [id number] 00:00:00 Test Item Value Reference Range Interpretation Comments CULTURE, URINE (test SPECIMEN NUMBER: code = 31254) [id number] CULTURE, [id number] 00:00:00 Test Item Value Reference Range Interpretation Comments CULTURE, URINE (test SPECIMEN NUMBER: code = 26914) [id number] MATERNAL AFP FOR NTD [id number] 00:00:00 Test Item Value Reference Range Interpretation Comments Neural tube defect risk (test 1:8046 code = 85296) Neural tube defect (NOTE) interpretation (test code = 01208) DATE OF (test code = 2660) 1995 MATERNAL WEIGHT (test code = 175 LBS 2657) INITIAL/REPEAT (test code = INITIAL 562809) FAMILY HISTORY OF NTD (test code NO = 399886) INSULIN DEP. DIABETIC (test code NO = 2659) RACE (test code = 2658) SMOKER? (test code = 958597) NO NUMBER OF GESTATIONS (test code 1 = 31901) GESTATIONAL AGE (test code = 16.6 WEEKS 2656) DETERMINED BY: (test code = LMP 2654) DATE OF LMP (test code = 2652) 05/12/2017 ADJUST AFP M.O.M. (test code = 1.132 M.O.M. 2661) AFP (test code = 10022) 34.9 NG/ML MATERNAL AFP FOR NTD [id number] 00:00:00 Test Item Value Reference Range Interpretation Comments Neural tube defect risk (test 1:8046 code = 63764) Neural tube defect (NOTE) interpretation (test code = 10346) DATE OF (test code = 2660) 1995 MATERNAL WEIGHT (test code = 175 LBS 2657) INITIAL/REPEAT (test code = INITIAL 448774) FAMILY HISTORY OF NTD (test code NO = 322135) INSULIN DEP. DIABETIC (test code NO = 2659) RACE (test code = 2658) SMOKER? (test code = 969194) NO NUMBER OF GESTATIONS (test code 1 = 76084) GESTATIONAL AGE (test code = 16.6 WEEKS 2656) DETERMINED BY: (test code = LMP 2654) DATE OF LMP (test code = 2652) 05/12/2017 ADJUST AFP M.O.M. (test code = 1.132 M.O.M. 2661) AFP (test code = 78221) 34.9 NG/ML MATERNAL AFP FOR NTD [id number] 00:00:00 Test Item Value Reference Range Interpretation Comments Neural tube defect risk (test 1:8046 code = 00383) Neural tube defect (NOTE) interpretation (test code = 99065) DATE OF (test code = 2660) 1995 MATERNAL WEIGHT (test code = 175 LBS 2657) INITIAL/REPEAT (test code = INITIAL 777458) FAMILY HISTORY OF NTD (test code NO = 526578) INSULIN DEP. DIABETIC (test code NO = 2659) RACE (test code = 2658) SMOKER? (test code = 962119) NO NUMBER OF GESTATIONS (test code 1 = 83734) GESTATIONAL AGE (test code = 16.6 WEEKS 2656) DETERMINED BY: (test code = LMP 2654) DATE OF LMP (test code = 2652) 05/12/2017 ADJUST AFP M.O.M. (test code = 1.132 M.O.M. 2661) AFP (test code = 95515) 34.9 NG/ML DRUG ABUSE PANEL 10 WITH [id number] 00:00:00 Test Item Value Reference Range Interpretation Comments AMPHETAMINES (test code = 3201) NEGATIVE BARBITURATES (test code = 3202) NEGATIVE BENZODIAZEPINES (test code = 3203) NEGATIVE CANNABINOIDS (test code = 3204) NEGATIVE COCAINE METABOLITE (test code = NEGATIVE 3205) METHADONE (test code = 3207) NEGATIVE METHAQUALONE (test code = 3208) NEGATIVE OPIATES (test code = 3209) NEGATIVE PHENCYCLIDINE (test code = 3210) NEGATIVE PROPOXYPHENE (test code = 3211) NEGATIVE SPECIMEN, DRUG SCREEN (test code = URINE 3217) OXYCODONE, URINE (test code = 64048) NEGATIVE DRUG ABUSE PANEL 10 WITH [id number] 00:00:00 Test Item Value Reference Range Interpretation Comments AMPHETAMINES (test code = 3201) NEGATIVE BARBITURATES (test code = 3202) NEGATIVE BENZODIAZEPINES (test code = 3203) NEGATIVE CANNABINOIDS (test code = 3204) NEGATIVE COCAINE METABOLITE (test code = NEGATIVE 3205) METHADONE (test code = 3207) NEGATIVE METHAQUALONE (test code = 3208) NEGATIVE OPIATES (test code = 3209) NEGATIVE PHENCYCLIDINE (test code = 3210) NEGATIVE PROPOXYPHENE (test code = 3211) NEGATIVE SPECIMEN, DRUG SCREEN (test code = URINE 3217) OXYCODONE, URINE (test code = 86766) NEGATIVE HEMOGLOBIN [id number] 00:00:00 Test Item Value Reference Range Interpretation Comments HEMOGLOBIN A1 (test code = 2575) 97.4 % HEMOGLOBIN A2 (test code = 2576) 2.6 % HEMOGLOBIN F () (test code 0.0 % = 2722) HEMOGLOBIN S (test code = 2724) NONE % HEMOGLOBIN C (test code = 2726) NONE % OTHER HEMOGLOBIN VARIANT (test NONE DETEC % code = 48794) PATHOLOGIST'S INTERPRETATION (NOTE) (test code = 2577) HEMOGLOBIN [id number] 00:00:00 Test Item Value Reference Range Interpretation Comments HEMOGLOBIN A1 (test code = 2575) 97.4 % HEMOGLOBIN A2 (test code = 2576) 2.6 % HEMOGLOBIN F () (test code 0.0 % = 2722) HEMOGLOBIN S (test code = 2724) NONE % HEMOGLOBIN C (test code = 2726) NONE % OTHER HEMOGLOBIN VARIANT (test NONE DETEC % code = 64865) PATHOLOGIST'S INTERPRETATION (NOTE) (test code = 2577) HEMOGLOBIN [id number] 00:00:00 Test Item Value Reference Range Interpretation Comments HEMOGLOBIN A1 (test code = 2575) 97.4 % HEMOGLOBIN A2 (test code = 2576) 2.6 % HEMOGLOBIN F () (test code 0.0 % = 2722) HEMOGLOBIN S (test code = 2724) NONE % HEMOGLOBIN C (test code = 2726) NONE % OTHER HEMOGLOBIN VARIANT (test NONE DETEC % code = 92485) PATHOLOGIST'S INTERPRETATION (NOTE) (test code = 2577) CULTURE, [id number] 00:00:00 Test Item Value Reference Range Interpretation Comments CULTURE, URINE (test SPECIMEN NUMBER: code = 52836) [id number] CULTURE, [id number] 00:00:00 Test Item Value Reference Range Interpretation Comments CULTURE, URINE (test SPECIMEN NUMBER: code = 61367) [id number] GC AND CHLAMYDIA, AMPLIFIED, [id number] 00:00:00 Test Item Value Reference Range Interpretation Comments GONORRHEA, TMA (test code = 81328) NEGATIVE CHLAMYDIA, TMA (test code = 72380) NEGATIVE GC AND CHLAMYDIA, AMPLIFIED, [id number] 00:00:00 Test Item Value Reference Range Interpretation Comments GONORRHEA, TMA (test code = 88042) NEGATIVE CHLAMYDIA, TMA (test code = 60184) NEGATIVE OBSTETRIC PANEL + [id number] 00:00:00 Test Item Value Reference Range Interpretation Comments WBC (test code = 1001) 9.6 K/UL RBC (test code = 1002) 4.23 M/UL HEMOGLOBIN (test code = 12.8 G/DL 1003) HEMATOCRIT (test code = 37.3 % 1004) MCV (test code = 1005) 88.2 fL MCH (test code = 1006) 30.3 PG MCHC (test code = 1007) 34.3 G/DL RDW (test code = 1038) 13.2 % NEUTROPHILS (test code = 74.2 % 1008) LYMPHOCYTES (test code = 18.7 % 1010) MONOCYTES (test code = 1011) 6.8 % EOSINOPHILS (test code = 0.1 % 1012) BASOPHILS (test code = 1013) 0.2 % PLATELET COUNT (test code = 281 K/UL 1015) BLOOD TYPE AND RH (test code O POSITIVE = 3901) ANTIBODY SCREEN (test code = NEGATIVE 390) RUBELLA ANTIBODY SCREEN 287 IU/ML (test code = 4600) RUBELLA IgG INTERP (test REACTIVE code = 46215) HEPATITIS B SURF AG (test NON-REACTIVE code = 2739) RPR RESULT (test code = NON-REACTIVE 3501) RPR TITER (test code = 3500) NOT INDIC. TITER HIV 1/2 4TH GEN, RFLX CONF NON-REACTIVE (test code = 3514) OBSTETRIC PANEL + [id number] 00:00:00 Test Item Value Reference Range Interpretation Comments WBC (test code = 1001) 9.6 K/UL RBC (test code = 1002) 4.23 M/UL HEMOGLOBIN (test code = 12.8 G/DL 1003) HEMATOCRIT (test code = 37.3 % 1004) MCV (test code = 1005) 88.2 fL MCH (test code = 1006) 30.3 PG MCHC (test code = 1007) 34.3 G/DL RDW (test code = 1038) 13.2 % NEUTROPHILS (test code = 74.2 % 1008) LYMPHOCYTES (test code = 18.7 % 1010) MONOCYTES (test code = 1011) 6.8 % EOSINOPHILS (test code = 0.1 % 1012) BASOPHILS (test code = 1013) 0.2 % PLATELET COUNT (test code = 281 K/UL 1015) BLOOD TYPE AND RH (test code O POSITIVE = 3901) ANTIBODY SCREEN (test code = NEGATIVE 390) RUBELLA ANTIBODY SCREEN 287 IU/ML (test code = 4600) RUBELLA IgG INTERP (test REACTIVE code = 16471) HEPATITIS B SURF AG (test NON-REACTIVE code = 2739) RPR RESULT (test code = NON-REACTIVE 3501) RPR TITER (test code = 3500) NOT INDIC. TITER HIV 1/2 4TH GEN, RFLX CONF NON-REACTIVE (test code = 3514) OBSTETRIC PANEL + [id number] 00:00:00 Test Item Value Reference Range Interpretation Comments WBC (test code = 1001) 9.6 K/UL RBC (test code = 1002) 4.23 M/UL HEMOGLOBIN (test code = 12.8 G/DL 1003) HEMATOCRIT (test code = 37.3 % 1004) MCV (test code = 1005) 88.2 fL MCH (test code = 1006) 30.3 PG MCHC (test code = 1007) 34.3 G/DL RDW (test code = 1038) 13.2 % NEUTROPHILS (test code = 74.2 % 1008) LYMPHOCYTES (test code = 18.7 % 1010) MONOCYTES (test code = 1011) 6.8 % EOSINOPHILS (test code = 0.1 % 1012) BASOPHILS (test code = 1013) 0.2 % PLATELET COUNT (test code = 281 K/UL 1015) BLOOD TYPE AND RH (test code O POSITIVE = 3901) ANTIBODY SCREEN (test code = NEGATIVE 3902) RUBELLA ANTIBODY SCREEN 287 IU/ML (test code = 4600) RUBELLA IgG INTERP (test REACTIVE code = 09486) HEPATITIS B SURF AG (test NON-REACTIVE code = 2739) RPR RESULT (test code = NON-REACTIVE 3501) RPR TITER (test code = 3500) NOT INDIC. TITER HIV 1/2 4TH GEN, RFLX CONF NON-REACTIVE (test code = 3514) DRUG ABUSE PANEL 10 WITH [id number] 00:00:00 Test Item Value Reference Range Interpretation Comments AMPHETAMINES (test code = 3201) NEGATIVE BARBITURATES (test code = 3202) NEGATIVE BENZODIAZEPINES (test code = 3203) NEGATIVE CANNABINOIDS (test code = 3204) NEGATIVE COCAINE METABOLITE (test code = NEGATIVE 3205) METHADONE (test code = 3207) NEGATIVE METHAQUALONE (test code = 3208) NEGATIVE OPIATES (test code = 3209) NEGATIVE PHENCYCLIDINE (test code = 3210) NEGATIVE PROPOXYPHENE (test code = 3211) NEGATIVE SPECIMEN, DRUG SCREEN (test code = URINE 3217) OXYCODONE, URINE (test code = 30072) NEGATIVE DRUG ABUSE PANEL 10 WITH [id number] 00:00:00 Test Item Value Reference Range Interpretation Comments AMPHETAMINES (test code = 3201) NEGATIVE BARBITURATES (test code = 3202) NEGATIVE BENZODIAZEPINES (test code = 3203) NEGATIVE CANNABINOIDS (test code = 3204) NEGATIVE COCAINE METABOLITE (test code = NEGATIVE 3205) METHADONE (test code = 3207) NEGATIVE METHAQUALONE (test code = 3208) NEGATIVE OPIATES (test code = 3209) NEGATIVE PHENCYCLIDINE (test code = 3210) NEGATIVE PROPOXYPHENE (test code = 3211) NEGATIVE SPECIMEN, DRUG SCREEN (test code = URINE 3217) OXYCODONE, URINE (test code = 65613) NEGATIVE HEPATITIS C REFLEX [id number] 00:00:00 Test Item Value Reference Range Interpretation Comments HEPATITIS C ANTIBODY (test code NON-REACTIVE = 4675) HEPATITIS C REFLEX [id number] 00:00:00 Test Item Value Reference Range Interpretation Comments HEPATITIS C ANTIBODY (test code NON-REACTIVE = 4675) VARICELLA ZOSTER [id number] 00:00:00 Test Item Value Reference Range Interpretation Comments VARICELLA ZOSTER IgG (test code = 1200 INDEX 83346) VARICELLA ZOSTER [id number] 00:00:00 Test Item Value Reference Range Interpretation Comments VARICELLA ZOSTER IgG (test code = 1200 INDEX 81111) HCG, QUALITATIVE [ADDED]2017-08-08 00:00:00 Test Item Value Reference Range Interpretation Comments HCG, QUALITATIVE (test code = 2507) POSITIVE HCG, QUALITATIVE [ADDED]2017-08-08 00:00:00 Test Item Value Reference Range Interpretation Comments HCG, QUALITATIVE (test code = 2507) POSITIVE HCG, QUALITATIVE [ADDED]2017-08-08 00:00:00 Test Item Value Reference Range Interpretation Comments HCG, QUALITATIVE (test code = 2507) POSITIVE HCG, [id number] 00:00:00 Test Item Value Reference Range Interpretation Comments HCG, QUANTITATIVE (test code = 88743 MIU/ML 2506) HCG, [id number] 00:00:00 Test Item Value Reference Range Interpretation Comments HCG, QUANTITATIVE (test code = 14740 MIU/ML 2506) HCG, [id number] 00:00:00 Test Item Value Reference Range Interpretation Comments HCG, QUANTITATIVE (test code = 86445 MIU/ML 2506)"
[2023-05-21 18:34] LABS: Absolute Lymphocytes (CBC) 3.2 K/uL (0.7-4.9); Hematocrit 40.5 % (36.0-45.0); Lymphocytes % 33.9 % (15.3-44.8); MCV 86.9 fL (80-100); MPV 8.3 fL (7.6-11.3); RBC Red Blood Cell Count 4.66 M/uL (3.86-4.86)
[2023-05-21 18:46] LABS: Bilirubin Direct 0.1 mg/dL (0-0.2); Bilirubin Indirect, Calculated 0.3 mg/dL (0.2-0.8); Bilirubin Total 0.4 mg/dL (0.2-1.0); Potassium 3.4 mEq/L (3.5-5.1); Protein, Total 8.1 g/dL (6.4-8.2); Troponin High Sensitivity 3.2 pg/mL (<58.9)
[2023-05-21 18:50] LABS: Specific Gravity 1.021 (1.005-1.030)
--- NOTE | 2023-05-21 18:51 | RAD REPORT ---
EXAM DESCRIPTION: RAD - Chest Single View - 05/21/2023 6:43 pm CLINICAL HISTORY: CP COMPARISON: <Comparisons> FINDINGS: Lines: None. Lungs: No evidence of edema or pneumonia. Pleural: No significant pleural effusions or pneumothorax. Cardiac: The heart size is within normal limits. Mediastinum: Within normal limits. Bones: No acute fractures. Other: None IMPRESSION: No acute cardiopulmonary disease.
--- NOTE | 2023-05-21 19:37 | ER ---
Nurse's Notes [facility] Name: Akanksha Cortez Age: 27 yrs Sex: Female : 1995 Arrival Date: 05/21/2023 Time: 17:42 Bed DX4 Private MD: Diagnosis: Chest pain, unspecified Presentation: 05/21 17:52 Chief complaint: Patient states: Left sided chest pain that radiates to her left arm cm10 that gets worse when she is laying in bed. Pt states that she has had the pain for 2 weeks and it was intermittent and now it is constant. Coronavirus screen: Vaccine status: Patient reports being unvaccinated. Ebola Screen: Patient denies travel to an Ebola-affected area in the 21 days before illness onset. No symptoms or risks identified at this time. Initial Sepsis Screen: Does the patient meet any 2 criteria? No. Patient's initial sepsis screen is negative. Does the patient have a suspected source of infection? No. Patient's initial sepsis screen is negative. Risk Assessment: Do you want to hurt yourself or someone else? Patient reports no desire to harm self or others. Onset of symptoms was May 21, 2023. 17:52 Method Of Arrival: Ambulatory cm10 17:52 Acuity: KALYAN 3 cm10 Historical: - Allergies: 17:54 PENICILLINS; cm10 - Home Meds: 17:54 None [Active]; cm10 - PMHx: 17:54 PCOS; cm10 - PSHx: 17:54 section; cm10 - Immunization history:: Adult Immunizations unknown. - Social history:: Smoking status: unknown. Screenin:57 [facility] ED Fall Risk Assessment (Adult) Score/Fall Risk Level 0 - 2 = Low Risk. Abuse as6 screen: Denies threats or abuse. Denies injuries from another. Nutritional screening: No deficits noted. Tuberculosis screening: No symptoms or risk factors identified. Assessment: 19:55 General: Appears in no apparent distress. General: at time of discharge pt is stable. as6 no complaints or concerns at this time . Respiratory: Respiratory effort is even, unlabored, Respiratory pattern is regular, symmetrical. Vital Signs: 17:52 BP 124 / 85; Pulse 79; Resp 18; Pulse Ox 100% on R/A; cm10 17:55 Temp 99.8; cm10 ED Course: 17:45 Patient arrived in ED. cm10 17:50 Marc Sommers MD is Attending Physician. jr11 17:54 Triage completed. cm10 17:54 Arm band placed on Patient placed in waiting room. EKG completed in triage. Results cm10 shown to MD. 18:18 Basic Metabolic Panel Sent. cm10 18:18 CBC with Diff Sent. cm10 18:18 D-Dimer Sent. cm10 18:18 LFT's Sent. cm10 18:18 NT PRO-BNP Sent. cm10 18:18 Troponin HS Sent. cm10 18:18 Test, Serum Sent. cm10 18:18 Initial lab(s) drawn, by mt, sent to lab. Urine collected: clean catch specimen. cm10 Inserted saline lock: 20 gauge in right antecubital area, using aseptic technique. Blood collected. Patient maintains SpO2 saturation greater than 95% on room air. 18:45 XRAY Chest (1 view) In Process Unspecified. EDMS 19:55 Bed in low position. Call light in reach. Provided Education on: discharge teaching. as6 19:58 No provider procedures requiring assistance completed. IV discontinued, intact, as6 bleeding controlled, No redness/swelling at site. Pressure dressing applied. Administered Medications: 19:54 Drug: Famotidine IVP 20 mg Route: IVP; Site: right antecubital; as6 19:54 Follow up: Response: No adverse reaction as6 19:54 Drug: GI Cocktail without - (Maalox PO Suspension 30 ml, Lidocaine Mucous as6 Membrane Liquid 2 % 15 ml) Route: PO; 19:55 Follow up: Response: No adverse reaction as6 Medication: 19:57 VIS not applicable for this client. as6 Outcome: 19:36 Discharge ordered by . jr11 19:57 Discharged to home ambulatory, with significant other. as6 19:57 Condition: stable 19:57 Discharge instructions given to patient, Instructed on discharge instructions, follow up and referral plans. medication usage, Demonstrated understanding of instructions, follow-up care, medications, Prescriptions given X 1. 19:58 Patient left the ED. as6 Signatures: Dispatcher [employer] EDMS Teo Artis, RN RN as6 Marc Sommers MD MD jr11 Adrianna Aldrich RN RN cm10
--- NOTE | 2023-05-21 19:37 | EDPHYS ---
Physician Documentation [facility] Name: Akanksha Cortez Age: 27 yrs Sex: Female : 1995 Arrival Date: 05/21/2023 Time: 17:42 Bed DX4 Private MD: ED Physician Marc Sommers HPI: 05/21 17:56 This 27 yrs old Female presents to ER via Ambulatory with complaints of Chest jr11 Pain, Arm Pain. 17:56 Patient is a 27-year-old with history of PCOS here for chest pain. Chest pains been jr11 going on for 2 weeks, constant over the last 2 days. Patient was seen at an outside facility where she was told that she needed to see a community worker in the near future. Patient is here because they told her about it and the pain came back to go to the ER. Denies any nausea vomiting pain is not described as tearing does not cross the diaphragm. Patient otherwise no fever no chills no cough review of system otherwise negative. Patient does feel some shortness of breath like she cannot get a full breath, states that she has been really stressed out.. Historical: - Allergies: 17:54 PENICILLINS; cm10 - Home Meds: 17:54 None [Active]; cm10 - PMHx: 17:54 PCOS; cm10 - PSHx: 17:54 section; cm10 - Immunization history:: Adult Immunizations unknown. - Social history:: Smoking status: unknown. ROS: 17:56 All other systems are negative. jr11 Exam: 17:56 Constitutional: This is a well developed, well nourished patient who is awake, alert, jr11 and in no acute distress. Head/Face: Normocephalic, atraumatic. Eyes: Extra-ocular motions intact. Lids and lashes normal. Conjunctiva and sclera are non-icteric and not injected. Cornea within normal limits. Periorbital areas with no swelling, redness, or edema. ENT: Nares patent. No nasal discharge, no septal abnormalities noted. Oropharynx with no redness, swelling, or masses, exudates, or evidence of obstruction, uvula midline. Mucous membranes moist. Neck: Trachea midline, no thyromegaly or masses palpated, and no cervical lymphadenopathy. Supple, full range of motion without nuchal rigidity, or vertebral point tenderness. No Meningismus. Chest/axilla: Normal chest wall appearance and motion. Nontender with no deformity. No lesions are appreciated. Cardiovascular: Regular rate and rhythm with a normal S1 and S2. No gallops, murmurs, or rubs. Normal PMI, no JVD. No pulse deficits. Respiratory: Lungs have equal breath sounds bilaterally, clear to auscultation and percussion. No rales, rhonchi or wheezes noted. No increased work of breathing, no retractions or nasal flaring. Abdomen/GI: Soft, non-tender, with normal bowel sounds. No distension or tympany. No guarding or rebound. No evidence of tenderness throughout. MS/ Extremity: Pulses equal, no cyanosis. Neurovascular intact. Full, normal range of motion. Neuro: Awake and alert, GCS 15, oriented to person, place, time, and situation. No gross motor or sensory deficits. Vital Signs: 17:52 BP 124 / 85; Pulse 79; Resp 18; Pulse Ox 100% on R/A; cm10 17:55 Temp 99.8; cm10 MDM: 17:56 Differential diagnosis: anxiety, chest wall pain, esophagitis, gastritis, pulmonary jr11 embolus. Differential diagnosis: Patient is a 27-year-old with atypical features of chest pain, no diaphoresis no vomiting does not cross the diaphragm, only one-point on history for radiation to the left arm. If troponins negative heart score less than 3, will be able to follow-up as an outpatient. Given that she is on Clomid, will send a D-dimer to rule out PE. Data reviewed: vital signs. ED course: EKG interpreted by me shows normal sinus rhythm, normal axis, normal intervals, no acute ST changes. Nonspecific T wave inversion in lead III, no STEMI. 17:58 Patient medically screened. jr11 19:35 ED course: Chest x-ray interpreted by me shows no pneumonia, troponin negative, heart jr11 score less than 3, patient already has follow-up scheduled, will keep that follow-up.. ED course: No concern for PE, D-dimer negative. 05/21 17:56 Order name: Basic Metabolic Panel; Complete Time: 18:52 jr11 05/21 17:56 Order name: CBC with Diff; Complete Time: 18:52 jr11 05/21 17:56 Order name: D-Dimer; Complete Time: 18:52 05/21 17:56 Order name: LFT's; Complete Time: 18:52 05/21 17:56 Order name: NT PRO-BNP; Complete Time: 18:52 05/21 17:56 Order name: Troponin HS; Complete Time: 18:52 05/21 18:43 Order name: Test, Urine; Complete Time: 18:52 [facility] 05/21 17:56 Order name: XRAY Chest (1 view); Complete Time: 18:52 05/21 17:56 Order name: EKG; Complete Time: 17:56 05/21 17:56 Order name: Cardiac monitoring 05/21 17:56 Order name: EKG - Nurse/Tech; Complete Time: 18:10 05/21 17:56 Order name: IV Saline Lock; Complete Time: 18:18 05/21 17:56 Order name: Labs collected and sent; Complete Time: 18:18 05/21 17:56 Order name: O2 Per Protocol 05/21 17:56 Order name: O2 Sat Monitoring 05/21 18:24 Order name: Labs - recollect needed: recollect serum preg, collect blood not urine.; bd Complete Time: 19:54 Administered Medications: 19:54 Drug: Famotidine IVP 20 mg Route: IVP; Site: right antecubital; as6 19:54 Follow up: Response: No adverse reaction as6 19:54 Drug: GI Cocktail without - (Maalox PO Suspension 30 ml, Lidocaine Mucous as6 Membrane Liquid 2 % 15 ml) Route: PO; 19:55 Follow up: Response: No adverse reaction as6 Disposition Summary: 05/21/23 19:36 Discharge Ordered Location: Home jr11 Condition: Stable jr11 Diagnosis - Chest pain, unspecified jr11 Discharge Instructions: - Discharge Summary Sheet jr11 - Nonspecific Chest Pain, Adult 11 Forms: - Medication Reconciliation Form jr11 - Thank You Letter jr11 - Antibiotic Education jr11 - Prescription Opioid Use jr11 - Patient Portal Instructions jr11 Prescriptions: - Pepcid 20 mg Oral Tablet - take 1 tablet by ORAL route every 12 hours for 10 days; 20 tablet; Refills: 0, jr11 Product Selection Permitted Signatures: Dispatcher MedRenea Cotton Ashby, RN RN as6 Marc Sommers MD MD jr11 Adrianna Aldrich RN RN cm10
[2023-05-21] MEDS ORDERED: MAGNES/ALUMIN/SIMET 30ML UCUP ONE (19:55)
[2023-05-21] MEDS ORDERED: FAMOTIDINE 20 MG/2 ML VIAL IV ONE (19:55)
[2023-05-21 21:05] VITALS: BP 124/85; O2SAT 100
[2023-05-21 21:06] VITALS: TEMP 99.8
--- NOTE | 2023-05-23 17:42 | EKG ---
Test Date: 2023-05-21 Test Time: 17:50:56 Automobile Mechanic Radiator: ARIEL MEASUREMENT RESULTS: Intervals: Rate: 79 AL: 148 QRSD: 94 QT: 396 QTc: 454 [place]: P: 34 AL: 148 QRS: 40 T: 28 INTERPRETIVE STATEMENTS: Normal sinus rhythm Normal ECG No previous ECG available for comparison Electronically Signed On 05-23-23 17:35:34 CDT by Pradeep Tirado
== END 2023-05-21 19:58 | disposition home or self-care (01) ==
LOC: ER 17:42
DX: R07.9 Chest pain, unspecified (principal)
CPT/HCPCS: 36415; 71045; 80048; 80076; 81025; 83880; 84484; 85025; 85379; 93005; 96374; 99285

== ENCOUNTER 2024-06-11 06:48 | Emergency (ER) | payer OTHER ==
--- OUTSIDE RECORDS SUMMARY | 2024-06-11 06:52 | XMS REPORT | Continuity of Care Document ---
Author Name Unknown Address [address] [facility] [address] [place] [address] [facility] [address] [facility]. [address] [place] [address] Care Team Providers Care Campus Coordinator Name Role Phone Pcp, Patient Does Not Have A Primary Care Physic dee MARGARITA SNOW Attending Clinician Unavailable Margarita Snow MD Attending Clinician [phone] Doctor Unassigned, [place] Attending Clinician U NIKITA Feliz Attending Clinician Unavailable ANDREA DAIGLE Attending Clinician Unav ailable Nani Jiang DO Attending Clinician [phone] Andrea Daigle MD Attending Clinician + NANI JIANG Admitting Clinician Unavailable Payers Payer Name Policy Type Policy Number Effective Date Expirati on Date Source MEDICAID ALIEN PENDING PENDING 2022 00:00:00 Problems Condition Name Condition Details Condition Category Status Onset Date Resolution Date Last Treatment Date Treating Clinician Comments Source Well woman exam Well woman exam Disease Active 03-25 00:00: 00 [facility] H/O allergy to penicillin H/O allergy to penicillin Disease Active 02-11 00:00: 00 [facility] Obesity (BMI 30-39.9) Obesity (BMI 30-39.9) Disease Active 02-08 00:00: 00 [facility] Allergies, Adverse Reactions, Alerts Allergy Name Allergy Type Status Severity Reaction(s) Onset Date Inactive Date Treating Clinician Comments Source Penicill ins Propensi ty to adverse reaction to drug Active 2016-10 00:00: 00 PENICILL IN G DRUG INGREDI Active Hives 01-03 00:00: 00 [facility] Penicill in G Propensi ty to adverse reaction s Active Hives 01-03 00:00: 00 [facility] Social History Social Habit Start Date Stop Date Quantity Comments Source Gender identity [facility] Exposure to SARS-CoV-2 (event) 2022-07-13 00:00:00 2022-07-23 03:54:00 Not sure [facility] Alcohol intake 2022-07-23 00:00:00 2022-07-23 00:00:00 0 /d [facility] History of Social function 2019-05-01 00:00:00 2019-05-01 00:00:00 [facility] Tobacco use and exposure 2018-01-08 00:00:00 2018-01-08 00:00:00 Smokeless tobacco non-user [facility] Sex Assigned At 1995 00:00:00 1995 00:00:00 [facility] Smoking Status Start Date Stop Date Source Never smoked tobacco [facility] Medications Ordered Medication Name Filled Medication Name Start Date Stop Date Current Medication? Ordering Clinician Indication Dosage Frequency Signature (SIG) Comments Components Source TAKE 1 TABLET BY MOUTH EVERY 8 HOURS NEEDED FOR NAUSEA AND VOMITING . 2021-10 00:00: 00 No iopamidol (ISOVUE 370-500 mL) injection 75 mL 2021-10 12:00: 00 07-23 11:03 :00 No [id number] 75mL 75 mL, Intravenou s, ONCE, 1 dose, On 07/23/22 at 0700, Routine [facility] pantoprazol e (PROTONIX) 80 mg in NaCl 0.9% (NS) 20 mL syringe 2021-10 10:15: 00 07-23 10:17 :00 No 80mg 80 mg, IV Push, ONCE, 1 dose, On 07/23/22 at 0515, Administer over 2 Minutes, 20 mL [facility] ondansetron (ZOFRAN (PF)) injection 4 mg 2021-10 10:15: 00 07-23 09:16 :00 No 4mg 4 mg, Slow IV Push, ONCE, 1 dose, On 07/23/22 at 0515, Routine [facility] maalox:diph enhydrAMINE :lidocaine 2 % viscous 1:1:1 (FIRST-MOUT HWASH BLM) oral suspension 15 mL 2021-10 10:00: 00 07-23 09:15 :00 No 15mL 15 mL, Oral, ONCE, 1 dose, On 07/23/22 at 0500, Routine [facility] morpHINE (4 mg/mL) injection 4 mg 2021-10 09:03: 00 Yes 4mg 4 mg, Slow IV Push, Q4HPRN, Starting on 07/23/22 at 0403, Until Discontinu ed, Routine, Pain (scale 7-10) [facility] ondansetron (ZOFRAN) 4 mg tablet 2021-10 00:00: 00 Yes [id number] 4mg Take 1 tablet by mouth every 8 (eight) hours as needed for Nausea and Vomiting (N/V). [facility] acetaminoph en-codeine (TYLENOL-CO DEINE #3) 300-30 mg tablet 2021-10 00:00: 00 07-31 04:59 :00 No [id number] 1{tbl} Take 1 tablet by mouth every 6 (six) hours as needed for Pain (scale 4-6) for up to 7 days. Indication s: acute pain [facility] Dose Unknown 2019-10 2- 00:00: 00 No Dose Unknown 04-01 00:00: 00 No sulfamethox azole 800 mg-trimetho prim 160 mg tablet 04-02 00:00: 00 No 1mg phenazopyri dine 200 mg tablet 04-02 00:00: 00 No 1mg cyclobenzap rine 5 mg tablet 16 00:00: 00 No 1mg Bactrim DS 800 mg-160 mg tablet 01-10 00:00: 00 No 1mg norethindro ne 0.35 mg tablet 03-25 00:00: 00 Yes [id number] 1{tbl} Take 1 tablet by mouth daily. [facility] ASCORBATE CALCIUM (VITAMIN C ORAL) 02-13 13:58: 52 Yes Take by mouth. [facility] HYDROcodone -acetaminop hen 5-325 mg tablet 02-13 00:00: 00 Yes 1{tbl} Take 1-2 tablets by mouth every 6 (six) hours as needed for Pain (scale 4-6) (Pain scale above 4). [facility] vitamin w/FA tablet 02-13 00:00: 00 Yes 1{tbl} Take 1 tablet by mouth daily. [facility] docusate calcium 240 mg capsule 02-13 00:00: 00 Yes 240mg Take 1 capsule by mouth once daily as needed for Constipati on. [facility] ferrous sulfate 325 mg (65 mg iron) tablet 02-13 00:00: 00 Yes 325mg Take 1 tablet by mouth 2 (two) times daily. [facility] ibuprofen 600 mg tablet 02-13 00:00: 00 Yes 600mg Take 1 tablet by mouth every 6 (six) hours as needed for Pain (scale 1-3) or Pain (scale 4-6) (Pain). Take with food or milk. [facility] vitamin w/FA tablet 02-13 00:00: 00 Yes 1{tbl} Take 1 tablet by mouth daily. [facility] Keflex 500 mg capsule 11-21 00:00: 00 No 1mg Immunizations Ordered Immunization Name Filled Immunization Name Date Status Comments Source HPV9 2018-09-30 00:00:00 Completed [facility] HPV9 2018-09-30 00:00:00 Completed [facility] HPV9 2018-09-30 00:00:00 Completed [facility] HPV9 2018-03-25 00:00:00 Completed [facility] HPV9 2018-03-25 00:00:00 Completed [facility] HPV9 2018-03-25 00:00:00 Completed [facility] HPV9 2018-02-13 00:00:00 Completed [facility] HPV9 2018-02-13 00:00:00 Completed [facility] HPV9 2018-02-13 00:00:00 Completed [facility] PPD (TB) 2018-01-08 00:00:00 Completed [facility] PPD (TB) 2018-01-08 00:00:00 Completed [facility] PPD (TB) 2018-01-08 00:00:00 Completed [facility] Influenza Virus Vaccine 2017-10-31 00:00:00 Completed [facility] Influenza Virus Vaccine 2017-10-31 00:00:00 Completed [facility] Influenza Virus Vaccine 2017-10-31 00:00:00 Completed [facility] TDAP (ADACEL) VACCINE 2017-10-03 00:00:00 Completed [facility] TDAP (ADACEL) VACCINE 2017-10-03 00:00:00 Completed [facility] TDAP (ADACEL) VACCINE 2017-10-03 00:00:00 Completed [facility] Influenza, seasonal, inj 2017-09-05 00:00:00 Completed Tdap 2017-09-05 00:00:00 Completed Influenza Virus Vaccine Quad ID 18-64 YRS 2017-01-03 00:00:00 Completed [facility] Influenza Virus Vaccine Quad ID 18-64 YRS 2017-01-03 00:00:00 Completed [facility] Influenza Virus Vaccine Quad ID 18-64 YRS 2017-01-03 00:00:00 Completed [facility] Influenza Virus Vaccine Quad ID 18-64 YRS Unknown Completed [facility] TDAP (ADACEL) VACCINE Unknown Completed [facility] PPD (TB) Unknown Completed [facility] Influenza Virus Vaccine Unknown Completed [facility] HPV9 Unknown Completed [facility] HPV9 Unknown Completed [facility] HPV9 Unknown Completed [facility] Influenza Virus Vaccine Quad ID 18-64 YRS Unknown Completed [facility] TDAP (ADACEL) VACCINE Unknown Completed [facility] PPD (TB) Unknown Completed [facility] Influenza Virus Vaccine Unknown Completed [facility] HPV9 Unknown Completed [facility] HPV9 Unknown Completed [facility] HPV9 Unknown Completed [facility] Influenza Virus Vaccine Quad ID 18-64 YRS Unknown Completed [facility] TDAP (ADACEL) VACCINE Unknown Completed [facility] PPD (TB) Unknown Completed [facility] Influenza Virus Vaccine Unknown Completed [facility] HPV9 Unknown Completed [facility] HPV9 Unknown Completed [facility] HPV9 Unknown Completed [facility] Influenza Virus Vaccine Quad ID 18-64 YRS Unknown Completed [facility] TDAP (ADACEL) VACCINE Unknown Completed [facility] PPD (TB) Unknown Completed [facility] Influenza Virus Vaccine Unknown Completed [facility] HPV9 Unknown Completed [facility] HPV9 Unknown Completed [facility] HPV9 Unknown Completed [facility] Vital Signs Vital Name Observation Time Observation Value Comments S ource Systolic blood pressure 2023-07-16 14:50:00 120 mm[Hg] [facility] Diastolic blood pressure 2023-07-16 14:50:00 77 mm[Hg] [facility] Heart rate 2023-07-16 14:50:00 76 /min [facility] Body temperature 2023-07-16 14:50:00 37.11 Alie [facility] Respiratory rate 2023-07-16 14:50:00 18 /min [facility] Body height 2023-07-16 14:50:00 162.6 cm [facility] Body weight 2023-07-16 14:50:00 92.761 kg [facility] BMI 2023-07-16 14:50:00 35.10 kg/m2 [facility] Oxygen saturation in Arterial blood by Pulse oximetry 2023-07-16 14:50:00 97 /min [facility] Systolic blood pressure 2022-07-23 12:03:00 122 mm[Hg] [facility] Diastolic blood pressure 2022-07-23 12:03:00 71 mm[Hg] [facility] Heart rate 2022-07-23 12:03:00 57 /min [facility] Respiratory rate 2022-07-23 12:03:00 16 /min [facility] Oxygen saturation in Arterial blood by Pulse oximetry 2022-07-23 12:00:00 99 /min [place] [facility] Body temperature 2022-07-23 08:56:00 36.11 Alie [facility] Body height 2022-07-23 08:56:00 162.6 cm [facility] Body weight 2022-07-23 08:56:00 88.451 kg [facility] BMI 2022-07-23 08:56:00 33.47 kg/m2 [facility] Heart Rate 2022-09-22 13:37:00 75.00 /min Respiratory [...] Procedures Procedure Date / Time Performed Performing Clinicia n Source NOTICE OF PRIVACY PRACTICES 2023-07-16 14:37:29 Doctor Unassigned, [place] [facility] REFERRAL- REQUEST/RESPONSE 2023-05-15 05:01:00 Doctor Unassigned, [place] [facility] US ABDOMEN LIMITED 2022-07-23 12:22:00 Nani Jiang [facility] CT ABDOMEN PELVIS W CONTRAST 2022-07-23 11:05:42 Nani Jiang [facility] POCT TEST 2022-07-23 10:35:00 Lola Jiang [facility] URINALYSIS 2022-07-23 10:25:00 Nani Jiang [facility] LIPASE 2022-07-23 09:17:00 Nani Jiang [facility] COMP. METABOLIC PANEL (42211) 2022-07-23 09:17:00 Nani Jiang [facility] CBC WITH DIFF 2022-07-23 09:17:00 Nani Jiang [facility] NOTICE OF PRIVACY PRACTICES 2022-07-23 08:50:10 Doctor Unassigned, [place] [facility] CONSENT/REFUSAL FOR DIAGNOSIS AND TREATMENT 2022-07-23 08:49:40 Doctor Unassigned, [place] [facility] Plan of Care Planned Activity Planned Date Details Comments Source Goal Plan of Care Note [code = 16650-6] Goal Plan of Care Note [code = 88203-4] Goal Plan of Care Note [code = 95194-5] Goal Plan of Care Note [code = 29016-9] Goal Plan of Care Note [code = 53308-1] Goal Plan of Care Note [code = 49158-1] Goal Plan of Care Note [code = 96788-6] Goal Plan of Care Note [code = 91529-3] Goal Plan of Care Note [code = 86824-8] Goal Plan of Care Note [code = 74377-7] Goal Plan of Care Note [code = 41373-8] Goal Plan of Care Note [code = 72976-9] Goal Plan of Care Note [code = 42431-6] Goal Plan of Care Note [code = 02577-8] Goal Plan of Care Note [code = 01478-2] Goal Plan of Care Note [code = 26181-5] Goal Plan of Care Note [code = 10995-6] Goal Plan of Care Note [code = 20984-8] Goal Plan of Care Note [code = 62394-1] Goal Plan of Care Note [code = 91959-8] Goal Plan of Care Note [code = 16613-0] Goal Plan of Care Note [code = 93344-1] Goal Plan of Care Note [code = 80286-5] Goal Plan of Care Note [code = 75537-3] Goal Plan of Care Note [code = 47472-6] Goal Plan of Care Note [code = 14328-3] Goal Plan of Care Note [code = 31445-9] Goal Plan of Care Note [code = 31986-7] Goal Plan of Care Note [code = 84516-5] Goal Plan of Care Note [code = 38948-7] Goal Plan of Care Note [code = 51880-5] Goal Plan of Care Note [code = 91124-4] Goal Plan of Care Note [code = 83267-8] Encounters Start Date/Time End Date/Time Encounter Type Admission Type Attending Clinicians Care Facility Care Department Encounter ID Source 2023-11-13 17:02:44 2023-11-13 17:02:44 Outpatient [facility] [id number] Nickolas Mclaughlin 2023-07-17 11:00:00 2023-07-17 11:00:00 [id number] 2023-07-16 09:20:00 2023-07-16 10:29:03 Outpatient [facility] [id number] [facility] 2023-07-16 09:20:00 2023-07-16 10:29:03 Office Visit Ryan [facility] [id number] 350.1.13.10 4.2.7.2.686 [id number] [facility] 2023-07-16 00:00:00 2023-07-16 00:00:00 Orders Only Doctor Unassigned, [place] [id number] 350.1.13.10 [id number] [id number] [facility] 2023-05-19 00:00:00 2023-05-19 00:00:00 Patient Secure Msg Doctor Unassigned, [place] [id number] 350.1.13.10 4.2.7.2.686 [id number] [facility] 2023-05-15 09:24:48 2023-05-15 09:24:48 Outpatient [facility] [id number] Nickolas Mclaughlin 2023-05-15 00:00:00 2023-05-15 00:00:00 Orders Only Doctor Unassigned, [place] [facility] [id number] 350.1.13.10 4.2.7.2.686 [id number] [facility] 2023-02-05 10:37:27 2023-02-05 10:37:27 Outpatient [facility] [id number] Nickolas Hernandez Arnoldo 2023-01-29 09:29:15 2023-01-29 09:29:15 Outpatient [facility] [id number] Nickolas Hernandez [place] 2023-01-23 16:29:57 2023-01-23 16:29:57 Outpatient [facility] [id number] Nickolas Hernandez Arnoldo 2023-01-22 15:44:46 2023-01-22 15:44:46 Outpatient [facility] [id number] Nickolas Hernandez [place] 2023-01-17 13:42:59 2023-01-17 13:42:59 Outpatient [facility] [id number] Nickolas Hernandez Arnoldo 2022-10-03 14:30:05 2022-10-03 14:30:05 Outpatient [facility] [id number] Nickolas Hernandez Arnoldo 2022-09-22 13:31:55 2022-09-22 13:31:55 Outpatient [facility] [id number] Nickolas Hernandez Arnoldo 2022-09-22 00:00:00 2022-09-22 00:00:00 Outpatient Visit [id number] 2022-07-31 13:45:00 2022-07-31 13:45:00 Outpatient NIKITA [facility] [id number] [facility] 2022-07-23 04:03:00 2022-07-23 08:19:00 Emergency X ANDREA DAIGLE [facility] ERT [id number] [facility] 2022-07-23 04:03:00 2022-07-23 08:19:00 Emergency Jiang, Nani Daigel , Andrea Torres [facility] [id number] 350.1.13.10 4.2.7.2.686 [id number] [facility] 2022-07-23 00:00:00 2022-07-23 00:00:00 Orders Only Doctor Unassigned, [place] [facility] [id number] 350.1.13.10 4.2.7.2.686 [id number] [facility] Results Test Description Test Time Test Comments Results Result Co mments Source TSH, THIRD [id number] 06:19:25* Test Item Value Reference Range Interpretation Comme nts TSH, THIRD GENERATION (test code = 2821) 1.350 UIU/ML 0.400-4.100 LIPID [id number] 04:55:46* Test Item Value Reference Range Interpretation Comme nts CHOLESTEROL (test code = 2210) 151 MG/DL <200 TRIGLYCERIDES (test code = 2232) 129 MG/DL <150 HDL CHOLESTEROL (test code = 2220) 29 MG/DL >39 L CALC LDL CHOL (test code = 2237) 99 MG/DL <100 NOTE: CALCULATED LDL IS BASED ON ARIE-GONZALES METHOD WHICHINCLUDES ADJUSTABLE TRIGLYCERIDE:VLDL CHOLESTEROL RATIO.THIS FACTOR VARIES BY MEASURED TRIGLYCERIDE AND NON-HDLCHOLESTEROL CONCENTRATIONS WITH INCREASED CALCULATED LDL SEENIN HIGHER TRIGLYCERIDE OR LOWER NON-HDL SPECIMENS. FOR MOREINFORMATION, SEE CLIENT ANNOUNCEMENT AT [email or web address] [email or web address] RATIO LDL/HDL (test code = 2238) 3.41 RATIO <3.22 H COMPREHENSIVE METABOLIC [id number] 04:55:46* Test Item Value Reference Range Interpretation Comme nts GLUCOSE (test code = 2217) 93 MG/DL 70-99 BUN (test code = 2208) 12 MG/DL 6-20 CREATININE (test code = 2214) 0.69 MG/DL 0.60-1.30 eGFR (2020 CKD-EPI) (test code = 79751) 120 ML/MIN/1.73 >60 CALC BUN/CREAT (test code = 2234) 17 RATIO 6-28 SODIUM (test code = 2230) 141 MEQ/L 133-146 POTASSIUM (test code = 8) 4.4 MEQ/L 3.5-5.4 CHLORIDE (test code = 2214) 106 MEQ/L 95-107 CARBON DIOXIDE (test code = 2205) 26 MEQ/L 19-31 CALCIUM (test code = 2208) 9.4 MG/DL 8.5-10.5 PROTEIN, TOTAL (test code = 2228) 7.6 G/DL 6.1-8.3 ALBUMIN (test code = 2200) 4.5 G/DL 3.5-5.2 CALC GLOBULIN (test code = 2239) 3.1 G/DL 1.9-3.7 CALC A/G RATIO (test code = 2233) 1.5 RATIO 1.0-2.6 BILIRUBIN, TOTAL (test code = 2206) 0.4 MG/DL See_Comment [Automated me ssage] The system which generated this result transmitted reference range: <=1.2. The reference range was not used to interpret this result as normal/abnormal. ALKALINE PHOSPHATASE (test code = 2203) 103 U/L 40-112 AST (test code = 2217) 21 U/L 9-40 ALT (test code = 2218) 22 U/L 5-40 HEMOGLOBIN [id number] 04:04:58* Test Item Value Reference Range Interpretation Comme nts HEMOGLOBIN A1c (test code = 39436) 5.7 % 4.2-5.6 H [employer] GUIDELINES FOR HGB A1C: PREDIABETES/INCREASED RISK . . . . . . . 5.7-6.4% DIAGNOSIS OF DIABETES . . . . . . . . . >=6.5% WITH CONFIRMATION OR APPROPRIATE SYMPTOMS NOTE: ASSAY MAY BE AFFECTED BY HEMOGLOBINOPATHIES (SICKLE CELL ANEMIA, S-C DISEASE, OTHERS) OR ARTIFICIALLY LOWERED BY DECREASED RED CELL SURVIVAL (HEMOLYTIC ANEMIAS, BLOOD LOSS, ETC.). CONSIDER ALTERNATE TESTING OR LABORATORY CONSULTATION. CBC W/AUTO DIFF WITH [id number] 03:42:12* Test Item Value Reference Range Interpretation Comme nts WBC (test code = 1001) 6.8 K/UL 3.5-11.0 RBC (test code = 1002) 4.83 M/UL 3.80-5.40 HEMOGLOBIN (test code = 1003) 13.8 G/DL 11.5-15.5 HEMATOCRIT (test code = 1004) 40.9 % 34.0-45.0 MCV (test code = 1005) 84.7 fL 80.0-99.0 MCH (test code = 1006) 28.6 PG 25.0-33.0 MCHC (test code = 1007) 33.7 G/DL 31.0-36.0 RDW (test code = 1038) 13.2 % 11.5-15.0 NEUTROPHILS (test code = 1008) 57.0 % LYMPHOCYTES (test code = 1010) 34.9 % MONOCYTES (test code = 1011) 6.9 % EOSINOPHILS (test code = 1012) 0.7 % BASOPHILS (test code = 1013) 0.4 % IMMATURE GRANULOCYTES (test code = 1036) 0.1 % NUCLEATED RBCS (test code = 1065) 0.0 /100 WBC'S See_Comment [Automated messa ge] The system which generated this result transmitted reference range: 0.0. The reference range was not used to interpret this result as normal/abnormal. PLATELET COUNT (test code = 1015) 288 K/UL 130-400 ABSOLUTE NEUTROPHILS (test code = 1066) 3.86 K/UL 1.50-7.50 ABSOLUTE LYMPHOCYTES (test code = 1067) 2.37 K/UL 1.00-4.00 ABSOLUTE MONOCYTES (test code = 1068) 0.47 K/UL 0.20-1.00 ABSOLUTE EOSINOPHILS (test code = 1040) 0.05 K/UL 0.00-0.50 ABSOLUTE BASOPHILS (test code = 1069) 0.03 K/UL 0.00-0.20 ABS IMMATURE GRANULOCYTES (test code = 1020) 0.01 K/UL 0.00-0.10 ABS NUCLEATED RBCS (test code = 42880) 0.00 K/UL 0.00-0.11 PAP TEST, THINPREP, [id number] 16:47:29* Test Item Value Reference Range Interpretation Comme nts SOURCE: (test code = 8001) Cervical SLIDES: (test code = 8011) 1 LMP: (test code = 8021) NOT GIVEN SPECIMEN ADEQUACY: (test code = 63666) (NOTE) Satisfactory for evaluation. Endocervical cells/transformation zone component present. INTERPRETATION: (test code = 31581) NILM/NO EPITH. ABNORMALITY;SEE BELOW --- - NEGATIVE FOR INTRAEPITHELIAL LESION OR MALIGNANCY (NILM) ---- OTHER COMMENTS: (test code = 8081) (NOTE) Background mater ial consistent with lubricant is present, whichinterferes with specimen processing. HEALTH CONSULTANT : (test code = 8101) Karlee Ryan [place] (ASCP) LOCATION: (test code = 73913) (NOTE) Specimens proces sed and interpreted at [facility], [address] [place] [address], , CLIA: [id number] CPT: (test code = 8140) (NOTE) [address] UNLESS OTH ERWISE INDICATED, COMPUTER AIDED AND HEALTH CONSULTANT SCREENING PERFORMED. The Pap test is a screening test with an inherent, but low probability of error. Your patient should be reminded to consult you immediately if she experiences any suspicious signs or symptoms, regardless of her Pap test result. An alternate report format containing images or consolidated prior Pap history is available as applicable. HPV HIGH RISK WITH GENOTYPE, [id number] 15:35:13* Test Item Value Reference Range Interpretation Comme nts HPV HIGH RISK INTERP (test code = 79907) NEGATIVE NEGATIVE HPV 16 (test code = 47616) NEGATIVE HPV 18 (test code = 76732) NEGATIVE HPV, HR, OTHER GENOTYPES (test code = 88079) NEGATIVE Testing methodol ogy is real-time PCR utilizing hydrolysis probes with the Booodlas 4800 system. The test individually detects genotypes 16 and 18, as well as the other 12 high risk types (31,33,35,39,45,51,52,56 ,58,59,66,68). The expected result is negative. A negative result does not rule out the presence of HPV not included in the genotype set, a low level of infection or specimen sampling error. [facility] has important pathology staff changes effective 12/20/2022. New pathology staff will provide uninterrupted, excellent patient care and clinical consultation. See URL: [email or web address]. UNLESS OTHERWISE INDICATED, ALL TESTING PERFORMED AT [facility] [address] [place] [address] CLIENT CARE CONSULTANT: EULALIA ALVAREZ M.D. CLIA NUMBER [id number] [place] [id number] CULTURE, [id number] 13:08:36SPECIMEN NUMBER: [id number] CULTURE, URINE SPECIMEN NUMBER: [id number] SPECIMEN COMMENT: URINE SOURCE: URINE REPORT STATUS: FINAL ISOLATE NUMBER 1: ORGANISM: 01/20/2023 >100,000 CFU/ML GRAM NEGATIVE BACILLI IDENTIFICATION: KLEBSIELLA PNEUMONIAE K. PNEUMONIAE AMOXICILLIN/CA SENSITIVE <=8/4AMPICILLIN RESISTANT >16CEFAZOLIN SENSITIVE <=2CEFTRIAXONE SENSITIVE <=1CIPROFLOXACIN SENSITIVE <=1LEVOFLOXACIN SENSITIVE <=2NITROFURANTOIN SENSITIVE <=32PIP/TAZOBAC SENSITIVE <=16TETRACYCLINE SENSITIVE <=4TOBRAMYCIN SENSITIVE <=4TRIMETH/SULFA SENSITIVE <=2/38NOTE: NUMBERS DISPLAYED REPRESENT MINIMUM INHIBITORY CONCENTRATION ([place]) WHICH IS EXPRESSED IN MCG/ML. [facility] has important pathology staff changes effective 12/20/2022. New pathology staff willprovide uninterrupted, excellent patient care and clinical consultation. See URL: [email or web address] UNLESS OTHERWISE INDICATED, ALL TESTING PERFORMED AT [facility] [address] [place] [address] CLIENT CARE CONSULTANT: EULALIA ALVAREZ M.D. CLIA NUMBER [id number] [place]. [id number] 10:35:00* Test Item Value Reference Range Interpretation Comme nts POCT PREG (test code = 1605) negative On board controls acceptable with C Line (test code = 3574) present POCT PREG LOT # (test code = 3575) [id number] POCT PREG TEST DATE ( test code = 3576) 2023-10-21 Lab Interpretation (test cod e = 23108-9) Normal [facility] WITH [id number] 09:48:02* Test Item Value Reference Range Interpretation Comme nts WBC (test code = 6690-2) See_Comment [Automated messa ge] The system which generated this result transmitted reference range: 4.30 - 11.10 10*3/?L. The reference range was not used to interpret this result as normal/abnormal. RBC (test code = 789-8) See_Comment [Automated messa ge] The system which generated this result transmitted reference range: 3.93 - 5.25 10*6/?L. The reference range was not used to interpret this result as normal/abnormal. HGB (test code = 718-7) 11.1 g/dL 11.6-15 L HCT (test code = 4544-3) 36.1 % 35.7-45.2 MCV (test code = 787-2) 82.2 fL 80.6-95.5 MCH (test code = 785-6) 25.3 pg 25.9-32.8 L MCHC (test code = 786-4) 30.7 g/dL 31.6-35.1 L RDW-SD (test code = 25075-0) 42.7 fL 39-49.9 RDW-CV (test code = 788-0) 14.5 % 12-15.5 PLT (test code = 777-3) See_Comment [Automated messa ge] The system which generated this result transmitted reference range: 166 - 358 10*3/?L. The reference range was not used to interpret this result as normal/abnormal. MPV (test code = 55716-8) 10.2 fL 9.5-12.9 NRBC/100 WBC (test code = 3170833811) See_Comment [Automated me ssage] The system which generated this result transmitted reference range: 0.0 - 10.0 /100 WBCs. The reference range was not used to interpret this result as normal/abnormal. NRBC x10^3 (test code = 6637898425) See_Comment [Automated messa ge] The system which generated this result transmitted reference range: 10*3/?L. The reference range was not used to interpret this result as normal/abnormal. GRAN MAT (NEUT) % (test code = 770-8) 63.7 % IMM GRAN % (test code = 2756745521) 0.20 % LYMPH % (test code = 736-9) 26.0 % MONO % (test code = 5905-5) 9.5 % EOS % (test code = 713-8) 0.3 % BASO % (test code = 706-2) 0.3 % GRAN MAT x10^3(ANC) (test code = 3960597652) 5.60 10*3/uL 1.88-7.09 IMM GRAN x10^3 (test code = 2032944650) 0-0.06 LYMPH x10^3 (test code = 731-0) 2.29 10*3/uL 1.32-3.29 MONO x10^3 (test code = 742-7) 0.84 10*3/uL 0.33-0.92 EOS x10^3 (test code = 711-2) 0.03 10*3/uL 0.03-0.39 BASO x10^3 (test code = 704-7) 0.03 10*3/uL 0.01-0.07 Lab Interpretation (test code = 12621-5) Abnormal [facility]. METABOLIC PANEL (35118)2022-07-23 09:46:21* Test Item Value Reference Range Interpretation Comme nts NA (test code = 6827712740) 142 mmol/L 135-145 K (test code = 8751634229) 4.4 mmol/L 3.5-5 CL (test code = 3108021911) 107 mmol/L 98-108 CO2 TOTAL (test code = 3001588533) 29 mmol/L 23-31 AGAP (test code = 4745148920) 2-16 BUN (test code = 7454689431) 11 mg/dL 7-23 GLUCOSE (test code = 3629337530) 114 mg/dL 70-110 H CREATININE (test code = 1093254581) 0.73 mg/dL 0.5-1.04 TOTAL BILI (test code = 8826167118) 0.2 mg/dL 0.1-1.1 CALCIUM (test code = 3241668718) 9.1 mg/dL 8.6-10.6 T PROTEIN (test code = 3225876411) 7.4 g/dL 6.3-8.2 ALBUMIN (test code = 1229420287) 4.6 g/dL 3.5-5 ALK PHOS (test code = 1257954758) 108 U/L 34-122 ALTv (test code = 1742-6) 25 U/L 5-35 AST(SGOT) (test code = 7968408670) 24 U/L 13-40 eGFR (test code = 9160109952) mL/min/1.73m2 GIANFRANCO (test code = GIANFRANCO) Association of [...] or abnormalities in imaging tests). Lab Interpretation (test code = 36208-1) [facility]* Test Item Value Reference Range Interpretation Comme [facility] LIPASE (test code = 8996666408) 45 U/L 0-220 Lab Interpretation (test cod e = 48855-0) [facility] Test Item Value Reference Range Interpretation Comme [facility] TSH, THIRD GENERATION (test code = 2821) 2.270 UIU/ML [id number] 00:00:00* Test Item Value Reference Range Interpretation Comme [facility] TSH, THIRD GENERATION (test code = 2821) 2.270 UIU/ML [id number] 00:00:00* Test Item Value Reference Range Interpretation Comme [facility] TSH, THIRD GENERATION (test code = 2821) 2.270 UIU/ML FSH + LH [id number] 00:00:00* Test Item Value Reference Range Interpretation Comme [facility] FOLLICLE STIM HORMONE (test code = 2700) 4.8 IU/L LUTEINIZING HORMONE (test co de = 2776) 13.3 IU/L FSH + LH [id number] 00:00:00* Test Item Value Reference Range Interpretation Comme [facility] FOLLICLE STIM HORMONE (test code = 2700) 4.8 IU/L LUTEINIZING HORMONE (test co de = 2776) 13.3 IU/L [id number] 00:00:00* Test Item Value Reference Range Interpretation Comme [facility] PROLACTIN (test code = 2800) 11.1 NG/ML [id number] 00:00:00* Test Item Value Reference Range Interpretation Comme [facility] PROLACTIN (test code = 2800) 11.1 NG/ML HIV AB/AG COMBO RFLX [id number] 00:00:00* Test Item Value Reference Range Interpretation Comme [facility] HIV 1/2 4TH GEN, RFLX CONF ( test code = 3514) NON-REACTIVE CBC W/AUTO [id number] 00:00:00* Test Item Value Reference Range Interpretation Comme [facility] WBC (test code = 1001) 6.0 K/UL [...] 1015) 282 K/UL HIV AB/AG COMBO RFLX [id number] 00:00:00* Test Item Value Reference Range Interpretation Comme nts HIV 1/2 4TH GEN, RFLX CONF ( test code = 3514) NON-REACTIVE CBC W/AUTO [id number] 00:00:00* Test Item Value Reference Range Interpretation Comme nts WBC (test code = 1001) 6.0 K/UL [...] code = 1015) 282 K/UL CBC W/AUTO [id number] 00:00:00* Test Item Value Reference Range Interpretation Comme nts WBC (test code = 1001) 6.0 K/UL [...] COUNT (test code = 1015) 282 K/UL [id number] 00:00:00* Test Item Value Reference Range Interpretation Comme nts RPR RESULT (test code = 3501) NON-REACTIVE RPR TITER (test code = 3500) NOT INDIC. TITER [id number] 00:00:00* Test Item Value Reference Range Interpretation Comme nts RPR RESULT (test code = 3501) NON-REACTIVE RPR TITER (test code = 3500) NOT INDIC. TITER [id number] 00:00:00* Test Item Value Reference Range Interpretation Comme nts RPR RESULT (test code = 3501) NON-REACTIVE RPR TITER (test code = 3500) NOT INDIC. TITER LIPID [id number] 00:00:00* Test Item Value Reference Range Interpretation Comme nts CHOLESTEROL (test code = 2210) 162 MG/DL TRIGLYCERIDES (test code = 2232) 144 MG/DL HDL CHOLESTEROL (test code = 2220) 31 MG/DL CALC LDL CHOL (test code = 2237) 102 MG/DL RISK RATIO LDL/HDL (test cod e = 2238) 3.30 RATIO LIPID [id number] 00:00:00* Test Item Value Reference Range Interpretation Comme nts CHOLESTEROL (test code = 2210) 162 MG/DL TRIGLYCERIDES (test code = 2232) 144 MG/DL HDL CHOLESTEROL (test code = 2220) 31 MG/DL CALC LDL CHOL (test code = 2237) 102 MG/DL RISK RATIO LDL/HDL (test cod e = 2238) 3.30 RATIO HEMOGLOBIN [id number] 00:00:00* Test Item Value Reference Range Interpretation Comme nts HEMOGLOBIN A1c (test code = 90662) 5.4 % HEPATITIS PROFILE (A,B,C)2019-09-23 00:00:00* Test Item Value Reference Range Interpretation Comme nts HEPATITIS A TOTAL AB (test c ode = 2725) REACTIVE HEPATITIS B SURF AG (test co de = 2739) NON-REACTIVE HEP B CORE TOTAL AB (test co de = 2729) NON-REACTIVE HEPATITIS B SURFACE AB (test code = 2737) REACTIVE HEPATITIS C ANTIBODY (test c ode = 4675) NON-REACTIVE INTERPRETATION HEPATITIS A: (test code = 2552) (NOTE) INTERPRETATION HEPATITIS B: (test code = 94878) (NOTE) INTERPRETATION HEPATITIS C: (test code = 19450) (NOTE) HEPATITIS PROFILE (A,B,C)2019-09-23 00:00:00* Test Item Value Reference Range Interpretation Comme nts HEPATITIS A TOTAL AB (test c ode = 2725) REACTIVE HEPATITIS B SURF AG (test co de = 2739) NON-REACTIVE HEP B CORE TOTAL AB (test co de = 2729) NON-REACTIVE HEPATITIS B SURFACE AB (test code = 2737) REACTIVE HEPATITIS C ANTIBODY (test c ode = 4675) NON-REACTIVE INTERPRETATION HEPATITIS A: (test code = 2552) (NOTE) INTERPRETATION HEPATITIS B: (test code = 72634) (NOTE) INTERPRETATION HEPATITIS C: (test code = 72388) (NOTE) HEMOGLOBIN [id number] 00:00:00* Test Item Value Reference Range Interpretation Comme nts HEMOGLOBIN A1c (test code = 94040) 5.4 % HEMOGLOBIN [id number] 00:00:00* Test Item Value Reference Range Interpretation Comme nts HEMOGLOBIN A1c (test code = 59709) 5.4 % HEPATITIS A IgM [REFLEX]2019-09-23 00:00:00* Test Item Value Reference Range Interpretation Comme nts HEPATITIS A IgM (test code = 2728) NON-REACTIVE COMPREHENSIVE METABOLIC [id number] 00:00:00* Test Item Value Reference Range Interpretation Comme nts GLUCOSE (test code = 2217) 100 MG/DL BUN (test code = 2208) 9 MG/DL CREATININE (test code = 2214) 0.67 MG/DL eGFR AMER. (test cod e = 08162) 141 ML/MIN/1.73 eGFR NON- AMER. (test code = 86256) 121 ML/MIN/1.73 CALC BUN/CREAT (test code = 2235) 13 RATIO SODIUM (test code = 2231) 140 MEQ/L POTASSIUM (test code = 2228) 4.2 MEQ/L CHLORIDE (test code = 2215) 102 MEQ/L CARBON DIOXIDE (test code = 2206) 27 MEQ/L CALCIUM (test code = 2209) 9.7 MG/DL PROTEIN, TOTAL (test code = 2229) 8.0 G/DL ALBUMIN (test code = 2201) 4.4 G/DL CALC GLOBULIN (test code = 2240) 3.6 G/DL CALC A/G RATIO (test code = 2234) 1.2 RATIO BILIRUBIN, TOTAL (test code = 2207) 0.3 MG/DL ALKALINE PHOSPHATASE (test code = 2204) 111 U/L AST (test code = 2218) 22 U/L ALT (test code = 2219) 28 U/L COMPREHENSIVE METABOLIC [id number] 00:00:00* Test Item Value Reference Range Interpretation Comme nts GLUCOSE (test code = 2217) 100 MG/DL BUN (test code = 2208) 9 MG/DL CREATININE (test code = 2214) 0.67 MG/DL eGFR AMER. (test cod e = 57815) 141 ML/MIN/1.73 eGFR NON- AMER. (test code = 90081) 121 ML/MIN/1.73 CALC BUN/CREAT (test code = 2235) 13 RATIO SODIUM (test code = 2231) 140 MEQ/L POTASSIUM (test code = 2228) 4.2 MEQ/L CHLORIDE (test code = 2215) 102 MEQ/L CARBON DIOXIDE (test code = 2206) 27 MEQ/L CALCIUM (test code = 2209) 9.7 MG/DL PROTEIN, TOTAL (test code = 2229) 8.0 G/DL ALBUMIN (test code = 2201) 4.4 G/DL CALC GLOBULIN (test code = 2240) 3.6 G/DL CALC A/G RATIO (test code = 2234) 1.2 RATIO BILIRUBIN, TOTAL (test code = 2207) 0.3 MG/DL ALKALINE PHOSPHATASE (test code = 2204) 111 U/L AST (test code = 2218) 22 U/L ALT (test code = 2219) 28 U/L PAP TEST, THINPREP, [id number] 00:00:00* Test Item Value Reference Range Interpretation Comme nts SOURCE: (test code = 8001) Cervical/Vaginal SLIDES: (test code = 8011) 1 LMP: (test code = 8021) 09/08/2019 SPECIMEN ADEQUACY: (test code = 75242) (NOTE) INTERPRETATION: (test code = 72708) NILM/NO EPITH. ABNORMALITY;SEE BELOW HEALTH CONSULTANT: (test code = 8101) SHAHRZAD Marquez(ASCP) LOCATION: (test code = 76794) (NOTE) CPT: (test code = 8140) (NOTE) PAP TEST, THINPREP, [id number] 00:00:00* Test Item Value Reference Range Interpretation Comme nts SOURCE: (test code = 8001) Cervical/Vaginal SLIDES: (test code = 8011) 1 LMP: (test code = 8021) 09/08/2019 SPECIMEN ADEQUACY: (test code = 20456) (NOTE) INTERPRETATION: (test code = 50179) NILM/NO EPITH. ABNORMALITY;SEE BELOW HEALTH CONSULTANT: (test code = 8101) SHAHRZAD Marquez(ASCP) LOCATION: (test code = 37349) (NOTE) CPT: (test code = 8140) (NOTE) GC AND CHLAMYDIA AMPLIFIED, [id number] 00:00:00* Test Item Value Reference Range Interpretation Comme nts GONORRHEA, TMA (test code = 12606) NEGATIVE CHLAMYDIA, TMA (test code = 75089) NEGATIVE GC AND CHLAMYDIA AMPLIFIED, [id number] 00:00:00* Test Item Value Reference Range Interpretation Comme nts GONORRHEA, TMA (test code = 87557) NEGATIVE CHLAMYDIA, TMA (test code = 83734) NEGATIVE HPV HIGH RISK WITH GENOTYPE, [id number] 00:00:00* Test Item Value Reference Range Interpretation Comme nts HPV HIGH RISK INTERP (test c ode = 24677) NEGATIVE HPV 16 (test code = 39381) NEGATIVE HPV 18 (test code = 31110) NEGATIVE HPV, HR, OTHER GENOTYPES (te st code = 97057) NEGATIVE HPV HIGH RISK WITH GENOTYPE, [id number] 00:00:00* Test Item Value Reference Range Interpretation Comme nts HPV HIGH RISK INTERP (test c ode = 23897) NEGATIVE HPV 16 (test code = 98600) NEGATIVE HPV 18 (test code = 20468) NEGATIVE HPV, HR, OTHER GENOTYPES (te st code = 29273) NEGATIVE [id number] 00:00:00* Test Item Value Reference Range Interpretation Comme nts TSH, THIRD GENERATION (test code = 2821) 3.020 UIU/ML [id number] 00:00:00* Test Item Value Reference Range Interpretation Comme nts TSH, THIRD GENERATION (test code = 2821) 3.020 UIU/ML [id number] 00:00:00* Test Item Value Reference Range Interpretation Comme nts TSH, THIRD GENERATION (test code = 2821) 3.020 UIU/ML HCG, [id number] 00:00:00* Test Item Value Reference Range Interpretation Comme nts HCG, QUANTITATIVE (test code = 2506) <5 MIU/ML HCG, [id number] 00:00:00* Test Item Value Reference Range Interpretation Comme nts HCG, QUANTITATIVE (test code = 2506) <5 MIU/ML HCG, [id number] 00:00:00* Test Item Value Reference Range Interpretation Comme nts HCG, QUANTITATIVE (test code = 2506) <5 MIU/ML CULTURE, [id number] 00:00:00* Test Item Value Reference Range Interpretation Comme nts CULTURE, URINE (test code = 98189) SPECIMEN NUMBER: [id number] CULTURE, [id number] 00:00:00* Test Item Value Reference Range Interpretation Comme nts CULTURE, URINE (test code = 00924) SPECIMEN NUMBER: [id number] VAGINAL PATHOGENS DNA [id number] 00:00:00* Test Item Value Reference Range Interpretation Comme nts BRYAN SPECIES (test code = ) NEGATIVE G. VAGINALIS (test code = 14589) NEGATIVE T. VAGINALIS (test code = 89353) NEGATIVE VAGINAL PATHOGENS DNA [id number] 00:00:00* Test Item Value Reference Range Interpretation Comme nts BRYAN SPECIES (test code = 14645) NEGATIVE G. VAGINALIS (test code = 34190) NEGATIVE T. VAGINALIS (test code = 07038) NEGATIVE CULTURE, [id number] 00:00:00* Test Item Value Reference Range Interpretation Comme nts CULTURE, URINE (test code = 50810) SPECIMEN NUMBER: [id number] CULTURE, [id number] 00:00:00* Test Item Value Reference Range Interpretation Comme nts CULTURE, URINE (test code = 13588) SPECIMEN NUMBER: [id number] CBC W/AUTO [id number] 00:00:00* Test Item Value Reference Range Interpretation Comme nts WBC (test code = 1001) 8.4 K/UL [...] code = 1015) 293 K/UL CBC W/AUTO [id number] 00:00:00* Test Item Value Reference Range Interpretation Comme nts WBC (test code = 1001) 8.4 K/UL [...] code = 1015) 293 K/UL CBC W/AUTO [id number] 00:00:00* Test Item Value Reference Range Interpretation Comme nts WBC (test code = 1001) 8.4 K/UL [...] 293 K/UL DRUG ABUSE PANEL 10 WITH [id number] 00:00:00* Test Item Value Reference Range Interpretation Comme nts AMPHETAMINES (test code = 3201) NEGATIVE BARBITURATES (test code = 3202) NEGATIVE BENZODIAZEPINES (test code = 3203) NEGATIVE CANNABINOIDS (test code = 3204) NEGATIVE COCAINE METABOLITE (test cod e = 3205) NEGATIVE METHADONE (test code = 3207) NEGATIVE METHAQUALONE (test code = 3208) NEGATIVE OPIATES (test code = 3209) NEGATIVE PHENCYCLIDINE (test code = 3210) NEGATIVE PROPOXYPHENE (test code = 3211) NEGATIVE SPECIMEN, DRUG SCREEN (test code = 3217) URINE OXYCODONE, URINE (test code = 91719) NEGATIVE DRUG ABUSE PANEL 10 WITH [id number] 00:00:00* Test Item Value Reference Range Interpretation Comme nts AMPHETAMINES (test code = 3201) NEGATIVE BARBITURATES (test code = 3202) NEGATIVE BENZODIAZEPINES (test code = 3203) NEGATIVE CANNABINOIDS (test code = 3204) NEGATIVE COCAINE METABOLITE (test cod e = 3205) NEGATIVE METHADONE (test code = 3207) NEGATIVE METHAQUALONE (test code = 3208) NEGATIVE OPIATES (test code = 3209) NEGATIVE PHENCYCLIDINE (test code = 3210) NEGATIVE PROPOXYPHENE (test code = 3211) NEGATIVE SPECIMEN, DRUG SCREEN (test code = 3217) URINE OXYCODONE, URINE (test code = 46198) NEGATIVE CULTURE, [id number] 00:00:00* Test Item Value Reference Range Interpretation Comme nts CULTURE, URINE (test code = 94392) SPECIMEN NUMBER: [id number] CULTURE, [id number] 00:00:00* Test Item Value Reference Range Interpretation Comme nts CULTURE, URINE (test code = 86725) SPECIMEN NUMBER: [id number] DRUG ABUSE PANEL 10 WITH [id number] 00:00:00* Test Item Value Reference Range Interpretation Comme nts AMPHETAMINES (test code = 3201) NEGATIVE BARBITURATES (test code = 3202) NEGATIVE BENZODIAZEPINES (test code = 3203) NEGATIVE CANNABINOIDS (test code = 3204) NEGATIVE COCAINE METABOLITE (test cod e = 3205) NEGATIVE METHADONE (test code = 3207) NEGATIVE METHAQUALONE (test code = 3208) NEGATIVE OPIATES (test code = 3209) NEGATIVE PHENCYCLIDINE (test code = 3210) NEGATIVE PROPOXYPHENE (test code = 3211) NEGATIVE SPECIMEN, DRUG SCREEN (test code = 3217) URINE OXYCODONE, URINE (test code = 26790) NEGATIVE DRUG ABUSE PANEL 10 WITH [id number] 00:00:00* Test Item Value Reference Range Interpretation Comme nts AMPHETAMINES (test code = 3201) NEGATIVE BARBITURATES (test code = 3202) NEGATIVE BENZODIAZEPINES (test code = 3203) NEGATIVE CANNABINOIDS (test code = 3204) NEGATIVE COCAINE METABOLITE (test cod e = 3205) NEGATIVE METHADONE (test code = 3207) NEGATIVE METHAQUALONE (test code = 3208) NEGATIVE OPIATES (test code = 3209) NEGATIVE PHENCYCLIDINE (test code = 3210) NEGATIVE PROPOXYPHENE (test code = 3211) NEGATIVE SPECIMEN, DRUG SCREEN (test code = 3217) URINE OXYCODONE, URINE (test code = 29661) NEGATIVE CULTURE, [id number] 00:00:00* Test Item Value Reference Range Interpretation Comme nts CULTURE, URINE (test code = 99808) SPECIMEN NUMBER: [id number] CULTURE, [id number] 00:00:00* Test Item Value Reference Range Interpretation Comme nts CULTURE, URINE (test code = 89119) SPECIMEN NUMBER: [id number] MATERNAL AFP FOR NTD [id number] 00:00:00* Test Item Value Reference Range Interpretation Comme nts Neural tube defect risk (radha t code = 18226) 1:8046 Neural tube defect interpretation (test code = 46531) (NOTE) DATE OF (test code = 2660) 1995 MATERNAL WEIGHT (test code = 2657) 175 LBS INITIAL/REPEAT (test code = 132204) INITIAL FAMILY HISTORY OF NTD (test code = 301520) NO INSULIN DEP. DIABETIC (test code = 2659) NO RACE (test code = 2658) SMOKER? (test code = 794537) NO NUMBER OF GESTATIONS (test c ode = 94181) 1 GESTATIONAL AGE (test code = 2656) 16.6 WEEKS DETERMINED BY: (test code = 2654) LMP DATE OF LMP (test code = 2652) 05/12/2017 ADJUST AFP M.O.M. (test code = 2661) 1.132 M.O.M. AFP (test code = 20350) 34.9 NG/ML MATERNAL AFP FOR NTD [id number] 00:00:00* Test Item Value Reference Range Interpretation Comme nts Neural tube defect risk (radha t code = 32313) 1:8046 Neural tube defect interpretation (test code = 31026) (NOTE) DATE OF (test code = 2660) 1995 MATERNAL WEIGHT (test code = 2657) 175 LBS INITIAL/REPEAT (test code = 661256) INITIAL FAMILY HISTORY OF NTD (test code = 990204) NO INSULIN DEP. DIABETIC (test code = 2659) NO RACE (test code = 2658) SMOKER? (test code = 716642) NO NUMBER OF GESTATIONS (test c ode = 38944) 1 GESTATIONAL AGE (test code = 2656) 16.6 WEEKS DETERMINED BY: (test code = 2654) LMP DATE OF LMP (test code = 2652) 05/12/2017 ADJUST AFP M.O.M. (test code = 2661) 1.132 M.O.M. AFP (test code = 96567) 34.9 NG/ML MATERNAL AFP FOR NTD [id number] 00:00:00* Test Item Value Reference Range Interpretation Comme nts Neural tube defect risk (radha t code = 09990) 1:8046 Neural tube defect interpretation (test code = 03093) (NOTE) DATE OF (test code = 2660) 1995 MATERNAL WEIGHT (test code = 2657) 175 LBS INITIAL/REPEAT (test code = 229574) INITIAL FAMILY HISTORY OF NTD (test code = 492559) NO INSULIN DEP. DIABETIC (test code = 2659) NO RACE (test code = 2658) SMOKER? (test code = 803454) NO NUMBER OF GESTATIONS (test c ode = 34774) 1 GESTATIONAL AGE (test code = 2656) 16.6 WEEKS DETERMINED BY: (test code = 2654) LMP DATE OF LMP (test code = 2652) 05/12/2017 ADJUST AFP M.O.M. (test code = 2661) 1.132 M.O.M. AFP (test code = 07498) 34.9 NG/ML DRUG ABUSE PANEL 10 WITH [id number] 00:00:00* Test Item Value Reference Range Interpretation Comme nts AMPHETAMINES (test code = 3201) NEGATIVE BARBITURATES (test code = 3202) NEGATIVE BENZODIAZEPINES (test code = 3203) NEGATIVE CANNABINOIDS (test code = 3204) NEGATIVE COCAINE METABOLITE (test cod e = 3205) NEGATIVE METHADONE (test code = 3207) NEGATIVE METHAQUALONE (test code = 3208) NEGATIVE OPIATES (test code = 3209) NEGATIVE PHENCYCLIDINE (test code = 3210) NEGATIVE PROPOXYPHENE (test code = 3211) NEGATIVE SPECIMEN, DRUG SCREEN (test code = 3217) URINE OXYCODONE, URINE (test code = 99286) NEGATIVE DRUG ABUSE PANEL 10 WITH [id number] 00:00:00* Test Item Value Reference Range Interpretation Comme nts AMPHETAMINES (test code = 3201) NEGATIVE BARBITURATES (test code = 3202) NEGATIVE BENZODIAZEPINES (test code = 3203) NEGATIVE CANNABINOIDS (test code = 3204) NEGATIVE COCAINE METABOLITE (test cod e = 3205) NEGATIVE METHADONE (test code = 3207) NEGATIVE METHAQUALONE (test code = 3208) NEGATIVE OPIATES (test code = 3209) NEGATIVE PHENCYCLIDINE (test code = 3210) NEGATIVE PROPOXYPHENE (test code = 3211) NEGATIVE SPECIMEN, DRUG SCREEN (test code = 3217) URINE OXYCODONE, URINE (test code = 19736) NEGATIVE HEMOGLOBIN [id number] 00:00:00* Test Item Value Reference Range Interpretation Comme nts HEMOGLOBIN A1 (test code = 2575) 97.4 % HEMOGLOBIN A2 (test code = 2576) 2.6 % HEMOGLOBIN F () (test c ode = 2722) 0.0 % HEMOGLOBIN S (test code = 2724) NONE % HEMOGLOBIN C (test code = 2726) NONE % OTHER HEMOGLOBIN VARIANT (te st code = 78250) NONE DETEC % PATHOLOGIST'S INTERPRETATION (test code = 2577) (NOTE) HEMOGLOBIN [id number] 00:00:00* Test Item Value Reference Range Interpretation Comme nts HEMOGLOBIN A1 (test code = 2575) 97.4 % HEMOGLOBIN A2 (test code = 2576) 2.6 % HEMOGLOBIN F () (test c ode = 2722) 0.0 % HEMOGLOBIN S (test code = 2724) NONE % HEMOGLOBIN C (test code = 2726) NONE % OTHER HEMOGLOBIN VARIANT (te st code = 65790) NONE DETEC % PATHOLOGIST'S INTERPRETATION (test code = 2577) (NOTE) HEMOGLOBIN [id number] 00:00:00* Test Item Value Reference Range Interpretation Comme nts HEMOGLOBIN A1 (test code = 2575) 97.4 % HEMOGLOBIN A2 (test code = 2576) 2.6 % HEMOGLOBIN F () (test c ode = 2722) 0.0 % HEMOGLOBIN S (test code = 2724) NONE % HEMOGLOBIN C (test code = 2726) NONE % OTHER HEMOGLOBIN VARIANT (te st code = 01459) NONE DETEC % PATHOLOGIST'S INTERPRETATION (test code = 2577) (NOTE) CULTURE, [id number] 00:00:00* Test Item Value Reference Range Interpretation Comme nts CULTURE, URINE (test code = 24233) SPECIMEN NUMBER: [id number] CULTURE, [id number] 00:00:00* Test Item Value Reference Range Interpretation Comme nts CULTURE, URINE (test code = 25063) SPECIMEN NUMBER: [id number] GC AND CHLAMYDIA, AMPLIFIED, [id number] 00:00:00* Test Item Value Reference Range Interpretation Comme nts GONORRHEA, TMA (test code = 26875) NEGATIVE CHLAMYDIA, TMA (test code = 05755) NEGATIVE GC AND CHLAMYDIA, AMPLIFIED, [id number] 00:00:00* Test Item Value Reference Range Interpretation Comme nts GONORRHEA, TMA (test code = 50788) NEGATIVE CHLAMYDIA, TMA (test code = 02104) NEGATIVE OBSTETRIC PANEL + [id number] 00:00:00* Test Item Value Reference Range Interpretation Comme nts WBC (test code = 1001) 9.6 K/UL RBC (test code = 1002) 4.23 M/UL HEMOGLOBIN (test code = 1003) 12.8 G/DL HEMATOCRIT (test code = 1004) 37.3 % MCV (test code = 1005) 88.2 fL MCH (test code = 1006) 30.3 PG MCHC (test code = 1007) 34.3 G/DL RDW (test code = 1038) 13.2 % NEUTROPHILS (test code = 1008) 74.2 % LYMPHOCYTES (test code = 1010) 18.7 % MONOCYTES (test code = 1011) 6.8 % EOSINOPHILS (test code = 1012) 0.1 % BASOPHILS (test code = 1013) 0.2 % PLATELET COUNT (test code = 1015) 281 K/UL BLOOD TYPE AND RH (test code = 3901) O POSITIVE ANTIBODY SCREEN (test code = 3902) NEGATIVE RUBELLA ANTIBODY SCREEN (test code = 4600) 287 IU/ML RUBELLA IgG INTERP (test code = 97355) REACTIVE HEPATITIS B SURF AG (test code = 2739) NON-REACTIVE RPR RESULT (test code = 3501) NON-REACTIVE RPR TITER (test code = 3500) NOT INDIC. TITER HIV 1/2 4TH GEN, RFLX CONF (test code = 3514) NON-REACTIVE OBSTETRIC PANEL + [id number] 00:00:00* Test Item Value Reference Range Interpretation Comme nts WBC (test code = 1001) 9.6 K/UL RBC (test code = 1002) 4.23 M/UL HEMOGLOBIN (test code = 1003) 12.8 G/DL HEMATOCRIT (test code = 1004) 37.3 % MCV (test code = 1005) 88.2 fL MCH (test code = 1006) 30.3 PG MCHC (test code = 1007) 34.3 G/DL RDW (test code = 1038) 13.2 % NEUTROPHILS (test code = 1008) 74.2 % LYMPHOCYTES (test code = 1010) 18.7 % MONOCYTES (test code = 1011) 6.8 % EOSINOPHILS (test code = 1012) 0.1 % BASOPHILS (test code = 1013) 0.2 % PLATELET COUNT (test code = 1015) 281 K/UL BLOOD TYPE AND RH (test code = 3901) O POSITIVE ANTIBODY SCREEN (test code = 3902) NEGATIVE RUBELLA ANTIBODY SCREEN (test code = 4600) 287 IU/ML RUBELLA IgG INTERP (test code = 32680) REACTIVE HEPATITIS B SURF AG (test code = 2739) NON-REACTIVE RPR RESULT (test code = 3501) NON-REACTIVE RPR TITER (test code = 3500) NOT INDIC. TITER HIV 1/2 4TH GEN, RFLX CONF (test code = 3514) NON-REACTIVE OBSTETRIC PANEL + [id number] 00:00:00* Test Item Value Reference Range Interpretation Comme nts WBC (test code = 1001) 9.6 K/UL RBC (test code = 1002) 4.23 M/UL HEMOGLOBIN (test code = 1003) 12.8 G/DL HEMATOCRIT (test code = 1004) 37.3 % MCV (test code = 1005) 88.2 fL MCH (test code = 1006) 30.3 PG MCHC (test code = 1007) 34.3 G/DL RDW (test code = 1038) 13.2 % NEUTROPHILS (test code = 1008) 74.2 % LYMPHOCYTES (test code = 1010) 18.7 % MONOCYTES (test code = 1011) 6.8 % EOSINOPHILS (test code = 1012) 0.1 % BASOPHILS (test code = 1013) 0.2 % PLATELET COUNT (test code = 1015) 281 K/UL BLOOD TYPE AND RH (test code = 3901) O POSITIVE ANTIBODY SCREEN (test code = 3902) NEGATIVE RUBELLA ANTIBODY SCREEN (test code = 4600) 287 IU/ML RUBELLA IgG INTERP (test code = 15500) REACTIVE HEPATITIS B SURF AG (test code = 2739) NON-REACTIVE RPR RESULT (test code = 3501) NON-REACTIVE RPR TITER (test code = 3500) NOT INDIC. TITER HIV 1/2 4TH GEN, RFLX CONF (test code = 3514) NON-REACTIVE DRUG ABUSE PANEL 10 WITH [id number] 00:00:00* Test Item Value Reference Range Interpretation Comme nts AMPHETAMINES (test code = 3201) NEGATIVE BARBITURATES (test code = 3202) NEGATIVE BENZODIAZEPINES (test code = 3203) NEGATIVE CANNABINOIDS (test code = 3204) NEGATIVE COCAINE METABOLITE (test cod e = 3205) NEGATIVE METHADONE (test code = 3207) NEGATIVE METHAQUALONE (test code = 3208) NEGATIVE OPIATES (test code = 3209) NEGATIVE PHENCYCLIDINE (test code = 3210) NEGATIVE PROPOXYPHENE (test code = 3211) NEGATIVE SPECIMEN, DRUG SCREEN (test code = 3217) URINE OXYCODONE, URINE (test code = 65067) NEGATIVE DRUG ABUSE PANEL 10 WITH [id number] 00:00:00* Test Item Value Reference Range Interpretation Comme nts AMPHETAMINES (test code = 3201) NEGATIVE BARBITURATES (test code = 3202) NEGATIVE BENZODIAZEPINES (test code = 3203) NEGATIVE CANNABINOIDS (test code = 3204) NEGATIVE COCAINE METABOLITE (test cod e = 3205) NEGATIVE METHADONE (test code = 3207) NEGATIVE METHAQUALONE (test code = 3208) NEGATIVE OPIATES (test code = 3209) NEGATIVE PHENCYCLIDINE (test code = 3210) NEGATIVE PROPOXYPHENE (test code = 3211) NEGATIVE SPECIMEN, DRUG SCREEN (test code = 3217) URINE OXYCODONE, URINE (test code = 86679) NEGATIVE HEPATITIS C REFLEX [id number] 00:00:00* Test Item Value Reference Range Interpretation Comme nts HEPATITIS C ANTIBODY (test c ode = 4675) NON-REACTIVE HEPATITIS C REFLEX [id number] 00:00:00* Test Item Value Reference Range Interpretation Comme nts HEPATITIS C ANTIBODY (test c ode = 4675) NON-REACTIVE VARICELLA ZOSTER [id number] 00:00:00* Test Item Value Reference Range Interpretation Comme nts VARICELLA ZOSTER IgG (test c ode = 57879) 1200 INDEX VARICELLA ZOSTER [id number] 00:00:00* Test Item Value Reference Range Interpretation Comme nts VARICELLA ZOSTER IgG (test c ode = 31686) 1200 INDEX HCG, QUALITATIVE [ADDED]2017-08-08 00:00:00* Test Item Value Reference Range Interpretation Comme nts HCG, QUALITATIVE (test code = 2507) POSITIVE HCG, QUALITATIVE [ADDED]2017-08-08 00:00:00* Test Item Value Reference Range Interpretation Comme nts HCG, QUALITATIVE (test code = 2507) POSITIVE HCG, QUALITATIVE [ADDED]2017-08-08 00:00:00* Test Item Value Reference Range Interpretation Comme nts HCG, QUALITATIVE (test code = 2507) POSITIVE HCG, [id number] 00:00:00* Test Item Value Reference Range Interpretation Comme nts HCG, QUANTITATIVE (test code = 2506) 41304 MIU/ML HCG, [id number] 00:00:00* Test Item Value Reference Range Interpretation Comme nts HCG, QUANTITATIVE (test code = 2506) 13563 MIU/ML HCG, [id number] 00:00:00* Test Item Value Reference Range Interpretation Comme nts HCG, QUANTITATIVE (test code = 2506) [id number] MIU/ML"
[2024-06-11 08:21] LABS: Specific Gravity 1.011 (1.005-1.030)
[2024-06-11 08:34] LABS: Sqamous Epithelial <5 /HPF (None Seen); Urine Bacteria None Seen /HPF (<20); Urine Bilirubin NEGATIVE (Negative); Urine Blood 2+ (Negative); Urine Clarity Turbid (Clear); Urine Color Colorless (Yellow); Urine Culture Reflex Order NOT NEEDED; Urine Glucose NEGATIVE (Negative); Urine Ketones NEGATIVE (Negative); Urine Microscopic Reflex YN ORDER UMIC; Urine Mucus Slight /HPF (None Seen); Urine Nitrite NEGATIVE (Negative); Urine Protein NEGATIVE (Negative); Urine Urobilinogen Normal (Normal); Urine WBC <5 /HPF (<5); Urine pH 7.5 (5.0-7.0)
--- NOTE | 2024-06-11 08:47 | RAD REPORT ---
EXAM DESCRIPTION: CTAbdomen Pelvis Wo Contrast - 06/11/2024 8:33 am CLINICAL HISTORY: L flank pain COMPARISON: No comparisons TECHNIQUE: CT of the abdomen and pelvis was performed without contrast. All CT scans are performed using dose optimization technique as appropriate and may include automated exposure control or mA/KV adjustment according to patient size. FINDINGS: Lower chest: No acute abnormality. Liver: No acute abnormality or suspicious lesions. Biliary: Cholecystectomy Stomach: No significant focal abnormality. Duodenum: No significant focal abnormality. Pancreas: No significant abnormality. Spleen: No significant abnormality. Adrenal: No suspicious lesions. Kidney/ureter: Mild left-sided hydroureteronephrosis secondary to a 3 mm stone at the left distal ure ter, just proximal to the UVJ. No renal calculi identified. Retroperitoneum: No retroperitoneal adenopathy. Vascular: No aneurysm. Bowel: No significant focal abnormality. Peritoneum: No ascites or free air. Bladder: Grossly unremarkable. Reproductive: No adnexal masses. Bones: No acute fracture. Other: n/a IMPRESSION: Mild left-sided hydroureteronephrosis secondary to a 3 mm stone in the left distal urete r.
[2024-06-11] MEDS ORDERED: KETOROLAC 30 MG/ML INJ ONE (09:01)
[2024-06-11] MEDS ORDERED: ONDANSETRON 4 MG/2 ML VIAL ONE (09:01)
[2024-06-11] MEDS ORDERED: NA CHLORIDE 0.9% 1,000 ML ONE (09:02)
[2024-06-11 09:06] LABS: Absolute Lymphocytes (CBC) 1.7 K/uL (0.7-4.9); Absolute Monocytes 0.6 K/uL (0.1-1.3); Absolute Neutrophil 7.3 K/uL (1.8-8.0); Basophils % 0.4 % (0-1.3); Eosinophils % 0.2 % (0-4.4); Hematocrit 38.4 % (36.0-45.0); Hemoglobin 12.8 g/dL (12.0-15.0); Lymphocytes % 17.8 % (15.3-44.8); MCH 29.8 pg (27.0-35.0); MCHC 33.4 g/dL (32.0-36.0); MCV 89.2 fL (80-100); MPV 7.9 fL (7.6-11.3); Monocytes % 6.6 % (3.3-12.3); Platelets 277 thou/uL (152-406); RBC Red Blood Cell Count 4.31 M/uL (3.86-4.86); Red Cell Distribution Width 13.2 % (12.1-15.2)
[2024-06-11 09:33] LABS: Albumin 3.7 g/dL (3.4-5.0); Albumin/Globulin Ratio 0.9 (1.1-1.8); Anion Gap 5.9 mEq/L (5.0-15.0); Bilirubin Total 0.4 mg/dL (0.2-1.0); Potassium 3.9 mEq/L (3.5-5.1); Protein, Total 7.7 g/dL (6.4-8.2)
--- NOTE | 2024-06-11 09:45 | EDPHYS ---
Physician Documentation [facility] Name: Akanksha Cortez Age: 28 yrs Sex: Female : 1995 Arrival Date: 06/11/2024 Time: 06:48 Bed 15 Private MD: ED Physician Rafael Stark HPI: 06/11 07:39 This 28 yrs old Female presents to ER via Ambulatory with complaints of Low rt Back Pain. 07:39 Patient presents to the ED with left flank pain radiating to the suprapubic region. rt Reports of pain with urination, some blood in her urine as well. This started at about 2 AM all of a sudden. Reports nausea with 1 episode of vomiting. Denies other acute complaints at this time, symptoms are moderate in severity, no other aggravating alleviating factors.. Historical: - Allergies: 07:19 PENICILLINS; ap3 - PMHx: 07:19 PCOS; ap3 - PSHx: 07:19 section; Cholecystectomy; ap3 - Immunization history:: . - Infectious Disease History:: Denies. - Social history:: Smoking status: Patient denies any tobacco usage or history of. - Family history:: not pertinent. ROS: 07:39 Constitutional: Negative for fever, chills, and weight loss, Cardiovascular: Negative rt for chest pain, palpitations, and edema, Respiratory: Negative for shortness of breath, cough, wheezing, and pleuritic chest pain, MS/Extremity: Negative for injury and deformity, Skin: Negative for injury, rash, and discoloration, Neuro: Negative for headache, weakness, numbness, tingling, and seizure, 07:39 Abdomen/GI: Positive for abdominal pain, nausea and vomiting, 07:39 Back: Positive for flank pain, Negative for injury or acute deformity, 07:39 : Positive for hematuria, burning with urination, Exam: 07:39 Constitutional: This is a well developed, well nourished patient who is awake, alert, rt and in no acute distress. Head/Face: Normocephalic, atraumatic. Chest/axilla: Normal chest wall appearance and motion. Nontender with no deformity. No lesions are appreciated. Cardiovascular: Regular rate and rhythm with a normal S1 and S2. No gallops, murmurs, or rubs. Normal PMI, no JVD. No pulse deficits. Respiratory: Lungs have equal breath sounds bilaterally, clear to auscultation and percussion. No rales, rhonchi or wheezes noted. No increased work of breathing, no retractions or nasal flaring. Skin: Warm, dry with normal turgor. Normal color with no rashes, no lesions, and no evidence of cellulitis. MS/ Extremity: Pulses equal, no cyanosis. Neurovascular intact. Full, normal range of motion. Neuro: Awake and alert, GCS 15, oriented to person, place, time, and situation. Cranial nerves II-XII grossly intact. Motor strength 5/5 in all extremities. Sensory grossly intact. Cerebellar exam normal. Normal gait. 07:39 Abdomen/GI: Mild suprapubic tenderness without rebound, guarding, distention, 07:39 Back: Tenderness to the left flank, no midline tenderness, Vital Signs: 07:18 BP 124 / 70; Pulse 68; Resp 18; Temp 97; Pulse Ox 98% ; Weight 90.72 kg; Pain 9/10; ap3 09:08 BP 118 / 72; Pulse 69; Resp 18; Pulse Ox 98% on R/A; ph 07:18 Pain Scale: Adult ap3 MDM: 07:25 Patient medically screened. rt 09:53 Differential diagnosis: Kidney stone, mechanical back pain, pyelonephritis. Data rt reviewed: vital signs, nurses notes, lab test result(s), radiologic studies. I considered the following discharge prescriptions or medication management in the emergency department Medications were administered in the Emergency Department. See MAR. Independent interpretation of the following test(s) in the Emergency Department CT Scan: My interpretation is Ureteral stone seen on interpretation of CT scan images. Counseling: I had a detailed discussion with the patient and/or guardian regarding the historical points, exam findings, and any diagnostic results supporting the discharge/admit diagnosis, lab results, radiology results, the need for outpatient follow up, to return to the emergency department if symptoms worsen or persist or if there are any questions or concerns that arise at home. Response to treatment: the patient's symptoms have resolved after treatment, the patient's pain is gone. 06/11 07:30 Order name: CBC with Diff; Complete Time: 09:22 rt 06/11 07:30 Order name: CMP; Complete Time: 09:36 rt 06/11 07:30 Order name: Lipase; Complete Time: 09:36 rt 06/11 07:30 Order name: Test, Urine; Complete Time: 08:40 rt 06/11 07:30 Order name: Urinalysis w/ reflexes; Complete Time: 08:40 rt 06/11 07:30 Order name: CT Abd/Pelvis - Without Contrast; Complete Time: 08:48 rt 06/11 07:30 Order name: IV Saline Lock; Complete Time: 08:51 rt 06/11 07:30 Order name: Labs collected and sent; Complete Time: 08:51 rt Administered Medications: 09:07 Drug: NS 0.9% IV 1000 ml IV at 1 bolus Per protocol; 1000 mL bolus Route: IV; Rate: 1 ph bolus; Site: right forearm; 10:00 Follow up: Response: No adverse reaction; IV Status: Completed infusion; IV Intake: ph 1000ml 09:07 Drug: Ondansetron IVP 4 mg IVP once; over 2 minutes Route: IVP; Site: right forearm; ph 09:30 Follow up: Response: No adverse reaction; Nausea is decreased ph 09:08 Drug: TORadol - Ketorolac IVP 15 mg IVP once Route: IVP; Site: right forearm; ph 09:30 Follow up: Response: No adverse reaction; Pain is decreased ph Disposition Summary: 06/11/24 09:44 Discharge Ordered Notes: Location: Home rt Problem: new rt Symptoms: have improved rt Condition: Stable rt Diagnosis - Calculus of ureter rt Followup: rt - With: Yaw Arnold MD - When: 5 - 6 days - Reason: Discharge Instructions: - Discharge Summary Sheet rt - Kidney Stones rt Forms: - Work release form ph - Medication Reconciliation Form rt - Antibiotic Education rt - Prescription Opioid Use rt - Patient Portal Instructions rt - Leadership Thank You Letter rt Prescriptions: - Zofran 4 mg Oral tablet - take 1 tablet ORAL route every 12 hours As needed; 18 tablet; Refills: 0, rt Product Selection Permitted - Tramadol 50 mg Oral tablet - take 1 tablet ORAL route every 8 hours as needed; 18 tablet; Refills: 0, rt Product Selection Permitted Signatures: Dispatcher [employer] Linda Evans RN RN ph Oralia Morse RN RN ap3 Rafael Stark MD MD rt Corrections: (The following items were deleted from the chart) 07:31 07:31 Abdomen Pelvis Wo Con+CT.RAD.BRZ ordered. EDMS EDMS
--- NOTE | 2024-06-11 09:45 | ER ---
Nurse's Notes [facility] Name: Akanksha Cortez Age: 28 yrs Sex: Female : 1995 Arrival Date: 06/11/2024 Time: 06:48 Bed 15 Private MD: Diagnosis: Calculus of ureter Presentation: 06/11 07:18 Chief complaint: Patient states: she started having left "kidney pain" at approx 0230 ap3 this morning and has vomited 3 times since it began. patient reports her pain is a 9/10 on the pain scale at this time. Coronavirus screen: At this time, the client does not indicate any symptoms associated with coronavirus-19. Ebola Screen: No symptoms or risks identified at this time. Initial Sepsis Screen: Does the patient meet any 2 criteria? No. Patient's initial sepsis screen is negative. Does the patient have a suspected source of infection? No. Patient's initial sepsis screen is negative. Risk Assessment: Do you want to hurt yourself or someone else? Patient reports no desire to harm self or others. Onset of symptoms was June 11, 2024 at 02:30. 07:18 Method Of Arrival: Ambulatory ap3 07:18 Acuity: KALYAN 3 ap3 Triage Assessment: 07:20 General: Appears in no apparent distress. Behavior is calm, cooperative, appropriate ap3 for age. Pain: Complains of pain in abdomen and left lower quadrant and back and left low back Pain currently is 9 out of 10 on a pain scale. Neuro: Level of Consciousness is awake, alert, obeys commands, Oriented to person, place, time, situation, Appropriate for age. Cardiovascular: Patient's skin is warm and dry. Respiratory: Airway is patent Respiratory effort is even, unlabored, Respiratory pattern is regular, symmetrical. Historical: - Allergies: 07:19 PENICILLINS; ap3 - PMHx: 07:19 PCOS; ap3 - PSHx: 07:19 section; Cholecystectomy; ap3 - Immunization history:: . - Infectious Disease History:: Denies. - Social history:: Smoking status: Patient denies any tobacco usage or history of. - Family history:: not pertinent. Screenin:20 [facility] ED Fall Risk Assessment (Adult) History of falling in the last 3 months, ap3 including since admission No falls in past 3 months (0 pts) Confusion or Disorientation No (0 pts) Intoxicated or Sedated No (0 pts) Impaired Gait No (0 pts) Mobility Assist Device Used No (0 pt) Altered Elimination No (0 pt) Score/Fall Risk Level 0 - 2 = Low Risk Oriented to surroundings, Maintained a safe environment, Educated pt \\T\\ family on fall prevention, incl call for assistance when getting out of bed, Assessed \\T\\ reinforced patient's understanding of fall precautions, Hourly rounding (assess needs \\T\\ fall precautionary measures) done, Used ambulatory aids as needed (educated on \\T\\ assisted with), Used gait belt as appropriate. Abuse screen: Denies threats or abuse. Nutritional screening: No deficits noted. Tuberculosis screening: No symptoms or risk factors identified. Assessment: 07:16 General: Appears uncomfortable, Behavior is calm, cooperative, appropriate for age. ap3 Pain: Complains of pain in left low back Pain radiates to left lower quadrant Pain currently is 9 out of 10 on a pain scale. Pain began 0230 this morning. Neuro: Level of Consciousness is awake, alert, obeys commands, Oriented to person, place, time, situation. Cardiovascular: Patient's skin is warm and dry. Respiratory: Airway is patent Respiratory effort is even, unlabored, Respiratory pattern is regular, symmetrical. GI: Reports nausea, vomiting. : Reports pain in left flank(s), with urination. Vital Signs: 07:18 BP 124 / 70; Pulse 68; Resp 18; Temp 97; Pulse Ox 98% ; Weight 90.72 kg; Pain 9/10; ap3 09:08 BP 118 / 72; Pulse 69; Resp 18; Pulse Ox 98% on R/A; ph 07:18 Pain Scale: Adult ap3 ED Course: 06:52 Patient arrived in ED. gm2 06:58 Rafael Stark MD is Attending Physician. rt 07:19 Triage completed. ap3 07:20 Arm band placed on right wrist. ap3 08:00 Missed attempt(s): 24 gauge in right forearm. Bleeding controlled, band aid applied, bc6 catheter tip intact. 08:06 Test, Urine Sent. ap3 08:06 Urinalysis w/ reflexes Sent. ap3 08:34 CT Abd/Pelvis - Without Contrast In Process Unspecified. EDMS 08:44 Linda Martinez, RN is Primary Nurse. ph 08:51 Initial lab(s) drawn, by me, sent to lab. Inserted saline lock: 22 gauge in right ph forearm, using aseptic technique. Blood collected. Flushed with 10 mL NS. 09:08 Patient has correct armband on for positive identification. Bed in low position. Call ph light in reach. Side rails up X 1. Pulse ox on. NIBP on. Door closed. Noise minimized. Warm blanket given. Pillow given. 09:44 Yaw Arnold MD is Referral Physician. rt 10:00 No provider procedures requiring assistance completed. IV discontinued, intact, ph bleeding controlled, No redness/swelling at site. Pressure dressing applied. Administered Medications: 09:07 Drug: NS 0.9% IV 1000 ml IV at 1 bolus Per protocol; 1000 mL bolus Route: IV; Rate: 1 ph bolus; Site: right forearm; 10:00 Follow up: Response: No adverse reaction; IV Status: Completed infusion; IV Intake: ph 1000ml 09:07 Drug: Ondansetron IVP 4 mg IVP once; over 2 minutes Route: IVP; Site: right forearm; ph 09:30 Follow up: Response: No adverse reaction; Nausea is decreased ph 09:08 Drug: TORadol - Ketorolac IVP 15 mg IVP once Route: IVP; Site: right forearm; ph 09:30 Follow up: Response: No adverse reaction; Pain is decreased ph Medication: 08:51 VIS not applicable for this client. ph Intake: 10:00 IV: 1000ml; Total: 1000ml. ph Outcome: :44 Discharge ordered by . rt 10:08 Patient left the ED. ph 10:08 Discharged to home ambulatory, ph 10:08 Condition: good 10:08 Discharge instructions given to patient, Instructed on discharge instructions, follow up and referral plans. Demonstrated understanding of instructions, follow-up care, Signatures: Dispatcher [employer] EDLinda Marques RN RN Oralia Morse RN RN ap3 Rafael Stark MD MD rt Annalisa Linares 6 Leann Fields gm2 Corrections: (The following items were deleted from the chart) 17:20 10:30 Response: No adverse reaction; IV Status: Completed infusion; IV Intake: 1000ml phph
[2024-06-11 10:18] VITALS: TEMP 97; O2SAT 98
[2024-06-11 10:24] VITALS: BP 118/72
== END 2024-06-11 10:08 | disposition home or self-care (01) ==
LOC: ER 06:48
DX: N20.1 Calculus of ureter (principal); R11.2 Nausea with vomiting, unspecified
CPT/HCPCS: 85025; 81001; 36415; 81025; 83690; 80053; 74176; J2405; J7030